=== PATIENT | female | born 1970 | race Caucasian/White ===

== ENCOUNTER 2017-04-09 19:36 | Emergency (ER) | payer OTHER ==
[~2017-04-09] VITALS: Ht 154.9 cm; Wt 70.0 kg
[~2017-04-09 19:36] MED LIST: ACET500C5 PO; HYDR-1666 PO; IBUP-1542 PO; IBUP-727 PO; IBUP800T25 PO
[2017-04-09 20:14] VITALS: Ht 154.9 cm; Wt 70.0 kg
[2017-04-09] MEDS ORDERED: ONDANSETRON (ODT) 4 MG TAB ODT STA (22:12)
[2017-04-09] MEDS ORDERED: ACETAMINOPHEN 325 MG TAB PO ONE (22:30)
--- NOTE | 2017-04-09 22:48 | RADRPT ---
PROCEDURE: CT Head without. CLINICAL INDICATION: Headache. TECHNIQUE: The study was performed utilizing a multi-slice, multidetector CT scanner. Direct spira l 1 mm axial sections were obtained through the head without the use of intravenous contrast materia l. 1 or more of the following dose reduction techniques were utilized: Automated exposure control, adjustment of the mA and/or kV according to patient's size, iterative reconstruction technique. Co cristina and sagittal reformations were obtained. The images were reviewed on a PACS workstation. RADIATION DOSE: CTDIvol: 44.2 mGyDLP: 630.2 mGy-cm COMPARISON: 05/19/2015 FINDINGS: There is no intracranial hemorrhage, extra-axial fluid collection, mass lesion, midline shift or hyd rocephalus. The ventricles, sulci and cisterns are within normal limits. The white matter is unrem arkable. The khan-white matter differentiation is preserved. The basal cisterns are patent. The m idline structures are intact. The orbits, calvarium and extracranial soft tissues are normal in amber earance. The visualized paranasal sinuses, mastoid air cells and middle ear cavities are normally ae rated. IMPRESSION: 1. No acute intracranial abnormality. No intracranial hemorrhage, extra-axial fluid collection, ma ss lesion or hydrocephalous. RPTAT: HGAS .Xavi Sparrow MD, MD Date Time Electronically viewed and signed by .Xavi Sparrow MD, MD on 04/09/2017 22:47 .S/
--- NOTE | 2017-04-09 23:27 | RADRPT ---
PROCEDURE: Left knee. CLINICAL INDICATION: Pain. TECHNIQUE: Three views including AP, lateral and oblique views of the left knee were obtained. T he images reviewed on a PACS workstation. COMPARISON: None. FINDINGS: There is no fracture, dislocation or bone destruction. There is no significant joint space narrowin g or effusion. Bone mineralization is within normal limits. There is no radiopaque foreign body or abnormal calcification. IMPRESSION: No evidence of fracture. .Juma Ireland MD, Date Time Electronically viewed and signed by .Juma Ireland MD, on 04/09/2017 23:26 .T/
--- NOTE | 2017-04-09 23:27 | ERD ---
ER Documentation Chief Complaint Date/Time DATE: 04/09/17 TIME: 23:24 Chief Complaint LEFT KNEE PAIN X3 DAYS. STATES SHE FELL HPI Patient is a 46-year-old female with no past medical history who presents to the ED with multiple complaints. States that she has left knee pain for the last week. She states that the pain is localized at her knee and does not radiate. She denies trauma. Also states that she has right shoulder pain 1 week. Denies trauma. States that it hurts when she lifts up her arm. Also states that she has right sided headachE 4 days. States that she has never had this type of pain before. States that she has gone headaches however her usual headaches are localized in the front and this headache is localized on the right side. States that she has mild nausea with no vomiting. Denies dizziness, neck pain or neck stiffness. Denies chest pain or cough or shortness of breath. Denies leg pain or swelling. Has taken ibuprofen which is helped minimally with her symptoms. No other complaints. ROS All systems reviewed and are negative except as per history of present illness. Medications Home Meds Active Scripts Naproxen* (Naprosyn*) 500 Mg Tablet, 500 MG PO BID Y for PAIN AND/OR INFLAMMATION, #30 TAB Prov:SHIRLENE CARSONC 04/09/17 Ibuprofen* (Motrin*) 800 Mg Tab, 800 MG PO Q6H Y for PAIN AND OR ELEVATED TEMP, #30 TAB Prov:BECKY MIGUEL MD 11/04/16 Ibuprofen* (Ibuprofen*) 600 Mg Tablet, 600 MG PO Q6H Y for PA, #30 TAB Prov:PHYLLIS MUELLER NP 08/19/15 Acetaminophen* (Tylophen*) 500 Mg Capsule, 1 CAP PO Q6H Y for PAIN AND OR ELEVATED TEMP, #30 CAP Prov:PHYLLIS MUELLER NP 05/19/15 Reported Medications Ibuprofen (Motrin) 600 Mg Tablet, 600 MG PO Q8 PRN 12/27/12 Hydrocodone Bit/Acetaminophen (Vicodin 5/500 Tablet) 1 Tab Tablet, 1 TAB PO Q4 PRN 12/27/12 Allergies Allergies: Coded Allergies: No Known Allergy (Unverified , 12/27/12) PMhx/Soc History of Surgery: Yes (cholecystectomy, C SECTION ) Anesthesia Reaction: No Hx Neurological Disorder: No Hx Respiratory Disorders: No Hx Cardiac Disorders: No Hx Psychiatric Problems: No Hx Miscellaneous Medical Probl: No Hx Alcohol Use: No Hx Substance Use: No Hx Tobacco Use: No Smoking Status: Never smoker FmHx Family History: No coronary disease, No diabetes, No other Physical Exam Vitals Vital Signs Date Time Temp Pulse Resp B/P Pulse Ox O2 Delivery O2 Flow Rate FiO2 04/09/17 20:14 98.2 71 18 155/93 95 Physical Exam GENERAL: Well-developed, well-nourished female. Appears in no acute distress. HEAD: Normocephalic, atraumatic. EYES: Pupils are equally reactive bilaterally. EOMs grossly intact. No conjunctival erythema. ENT: Moist mucous membranes. No uvula deviation. No kissing tonsils. No exudates. NECK: Supple. No lymphadenopathy or thyromegaly. No meningismus. negative kernig. negative brudinski. LUNG: Clear to auscultation bilaterally. No rhonchi, wheezing, rales or coarse breath sounds. HEART: Regular rate and rhythm. No murmurs, rubs or gallops. Extremities: Equal pulses bilaterally. No peripheral clubbing, cyanosis or edema. No unilateral leg swelling. No ecchymosis. Range of motion intact. No swelling. Negative Homans sign. No palpable cord. Tenderness to the right scapula. Pain with full extension. No step-offs or deformities. No open wounds or lacerations. NEUROLOGIC: Alert and oriented. Moving all four extremities. 5/5 strength in all extremities. Normal speech. Steady gait. No ataxia. Negative Romberg test. Cranial nerves II through XII intact SKIN: Normal color. Warm and dry. No rashes or lesions. Capillary refill < 2 seconds Results 24 hrs Current Medications Medications (Trade) Dose Ordered Sig/Reanna Route PRN Reason Start Time Stop Time Status Last Admin Dose Admin Acetaminophen (Tylenol Tab) 650 mg ONCE ONCE PO 04/09/17 22:30 04/09/17 22:31 DC 04/09/17 22:18 Ondansetron HCl (Zofran Odt) 4 mg ONCE STAT ODT 04/09/17 22:12 04/09/17 22:13 DC 04/09/17 22:18 Procedures/MDM ER COURSE: I kept the patient and/or family informed of laboratory and diagnostic imaging results throughout the emergency room course. IMAGING STUDIES [place] [address] Radiology Main Line: [phone] DIAGNOSTIC IMAGING REPORT Patient: OMAR LOCO : 1970 Age: 46 Sex: F MR #: [id number] DOS: 04/09/17 2212 Ordering MD: SHIRLENE CARSON PA-C Location: [facility] Room/Bed: PROCEDURE: CT Head without. CLINICAL INDICATION: Headache. TECHNIQUE: The study was performed utilizing a multi-slice, multidetector CT scanner. Direct spiral 1 mm axial sections were obtained through the head without the use of intravenous contrast material. 1 or more of the following dose reduction techniques were utilized: Automated exposure control, adjustment of the mA and/or kV according to patient's size, iterative reconstruction technique. Coronal and sagittal reformations were obtained. The images were reviewed on a PACS workstation. RADIATION DOSE: CTDIvol: 44.2 mGy DLP: 630.2 mGy-cm COMPARISON: 05/19/2015 FINDINGS: There is no intracranial hemorrhage, extra-axial fluid collection, mass lesion, midline shift or hydrocephalus. The ventricles, sulci and cisterns are within normal limits. The white matter is unremarkable. The khan-white matter differentiation is preserved. The basal cisterns are patent. The midline structures are intact. The orbits, calvarium and extracranial soft tissues are normal in appearance. The visualized paranasal sinuses, mastoid air cells and middle ear cavities are normally aerated. IMPRESSION: 1. No acute intracranial abnormality. No intracranial hemorrhage, extra-axial fluid collection, mass lesion or hydrocephalous. RPTAT: HGAS .Xavi Sparrow MD, MD Date Time Electronically viewed and signed by .Xavi Sparrow MD, MD on 04/09/2017 22: 47 .S/ CC: SHIRLENE CARSON PA-C MEDICATIONS Tylenol, Zofran. Tolerated well with no adverse reaction. MEDICAL DECISION MAKING: This is a 46-year-old who presents with left knee pain, headache and right shoulder pain 1 week. Vital signs were reviewed. Patient is afebrile. Patient is not hypoxic. Patient is not toxic or ill-appearing. Patient has headache of unknown etiology. CT scan is read by radiologist unremarkable. Patient has left knee pain of unknown etiology. X-rays of by radiologist unremarkable for fracture dislocation. Patient likely has early arthritis. X-rays of by radiologist for shoulder is unremarkable. Patient likely has muscle strain versus sprain. However unable to rule out tendon or ligament injury. Low suspicion for dislocation, fracture, septic joint, compartment syndrome, osteomyelitis, cellulitis, avascular necrosis, neurological injury, vascular injury, tendon laceration, DVT. Low suspicion for intracranial hemorrhage, meningitis, intracranial mass, concussion, temporal arteritis, stroke, elevated intracranial pressure, seizure. Patient was given an Hieu wrap in the ED. Neurovascularly intact post Hieu placement DISCHARGE: At this time, patient is stable for discharge and outpatient management with no new complaints during the ER course. Patient was sent home with Naprosyn, Hieu wrap and to follow-up with primary care provider. All copy of imaging studies were given to patient peer. Patient will be discharged home with instructions to recheck for new or worsening symptoms such as fever, nausea, weakness, LOC and to follow up with primary care in the next 1-2 days. Patient was advised to return to the ER for any new or worsening symptoms. Plan was discussed and patient and/or family understands and agrees. Home instructions were given. Departure Diagnosis: Primary Impression: Headache Headache type: unspecified Headache chronicity pattern: unspecified pattern Intractability: not intractable Qualified Code: R51 - Nonintractable headache, unspecified chronicity pattern, unspecified headache type Additional Impression: Knee pain Laterality: left Chronicity: acute Qualified Code: M25.562 - Acute pain of left knee Condition: Stable SHIRLENE CARSON PA-C Apr 09, 2017 23:27
--- NOTE | 2017-04-09 23:28 | RADRPT ---
PROCEDURE: Right shoulder. CLINICAL INDICATION: Pain. TECHNIQUE: Three views of the right shoulder. COMPARISON: None. FINDINGS: There is no fracture, dislocation or bone destruction. The joint spaces are within normal limits. Bone mineralization is within normal limits. There is no radiopaque foreign body or abnormal calcif ication. IMPRESSION: Unremarkable right shoulder. .Juma Ireland MD, MD Date Time Electronically viewed and signed by .Juma Ireland MD, on 04/09/2017 23:27 .T/
[2017-04-09] MEDS ORDERED: NAPR-260 PO (23:33)
[2017-04-10] VITALS: BP 135/65; PULSE 64; RESP 20; TEMP 98
== END 2017-04-10 00:03 | disposition home or self-care (01) ==
LOC: FTE 19:36
DX: R51 Headache (principal)
CPT/HCPCS: 70450; 73030; 73562; Z7502; Z7610

== ENCOUNTER 2017-06-14 01:19 | Emergency (ER) | payer OTHER ==
[~2017-06-14] VITALS: Ht 152.4 cm; Wt 97.0 kg
[~2017-06-14 01:19] MED LIST changes: +NAPR-260 PO
[2017-06-14 01:26] VITALS: Ht 152.4 cm; Wt 97.0 kg
[2017-06-14] MEDS ORDERED: SOD CHLORIDE 0.9% 1,000 ML IV STA (01:35)
[2017-06-14] MEDS ORDERED: ONDANSETRON 4 MG INJ IV STA (01:35)
[2017-06-14] MEDS ORDERED: morphine 2 MG INJ IV STA (01:35)
[2017-06-14] MEDS ORDERED: ASPIRIN 325 MG TAB PO ONE (02:23)
--- NOTE | 2017-06-14 02:40 | RADRPT ---
PROCEDURE: XR Chest. CLINICAL INDICATION: Chest pain. TECHNIQUE: Single frontal chest x-ray. COMPARISON: None. FINDINGS: The cardiomediastinal silhouette is unremarkable. There is no congestive heart failure.. No focal i nfiltrate is seen. There is no pleural effusion. There is no pneumothorax. The osseous structures are unremarkable. IMPRESSION: 1. No active disease. RPTAT: HMVK .Michael Shen MD, MD Date Time Electronically viewed and signed by .Michael Shen MD, MD on 06/14/2017 02:40 .K/
--- NOTE | 2017-06-14 03:12 | RADRPT ---
PROCEDURE: CT Brain without contrast. CLINICAL INDICATION: Headache and hypertension TECHNIQUE: Axial images from the skull base through the vertex without IV contrast. Multiplanar r eformatted images were made. Images were reviewed on a PACS workstation. The CTDIvol is 44.4 see m Gy and the DLP is 630.2 mGycm. One or more of the following dose reduction techniques were used: au tomated exposure control, adjustment of the mA and/or kV according to patient size, or use of iterat omari reconstruction technique. COMPARISON: 04/09/2017 FINDINGS: The ventricles and cisterns are normal for age. There is no evidence for territorial infarction or intracranial hemorrhage. No mass or midline shift is seen. No extra-axial fluid collection is seen . The visualized paranasal sinuses and mastoids are clear. IMPRESSION: No definite acute intracranial abnormality. RPTAT: HLBE Physician Naveed Date Time Electronically viewed and signed by Mirtha Avila Physician on 06/14/2017 03:12 SANJIV/
[2017-06-14 03:13] LABS: BASOPHIL # 0.1 10^3/ul (0.0-0.1); BASOPHILS % 0.7 % (0.0-2.0); EOSINOPHILS # 0.3 10^3/ul (0.0-0.5); EOSINOPHILS % 3.9 % (0.0-7.0); HEMATOCRIT 39.1 % (37.0-47.0); LYMPHOCYTES # 2.9 10^3/ul (0.8-2.9); LYMPHOCYTES % 38.4 % (15.0-51.0); MEAN CORPUSCULAR HEMOGLOBIN 30.2 pg (29.0-33.0); MEAN CORPUSCULAR HGB CONC 33.2 g/dl (32.0-37.0); MEAN CORPUSCULAR VOLUME 90.9 fl (82.0-101.0); MEAN PLATELET VOLUME 10.9 fl (7.4-10.4); MONOCYTE # 0.7 10^3/ul (0.3-0.9); MONOCYTES % 8.9 % (0.0-11.0); NEUTROPHIL # 3.6 10^3/ul (1.6-7.5); NEUTROPHILS % 47.7 % (39.0-77.0); PLATELET COUNT 288 10^3/UL (140-415); RED CELL DISTRIBUTION WIDTH 11.9 % (11.5-14.5); WHITE BLOOD COUNT 7.6 10^3/ul (4.8-10.8)
[2017-06-14 03:31] LABS: INR 0.95; PROTIME 12.7 Sec (12.2-14.2)
[2017-06-14 03:43] LABS: ADD UMIC YES; UR ASCORBIC ACID NEGATIVE (NEGATIVE); UR BACTERIA FEW /HPF (NONE SEEN); UR BILIRUBIN (Dip) NEGATIVE (NEGATIVE); UR BLOOD (Dip) NEGATIVE (NEGATIVE); UR CLARITY CLEAR (CLEAR); UR COLOR YELLOW (YELLOW); UR GLUCOSE (Dip) NEGATIVE (NEGATIVE); UR KETONES (Dip) NEGATIVE (NEGATIVE); UR LEUKOCYTE ESTERASE (Dip) TRACE Leu/ul (NEGATIVE); UR MUCUS FEW /HPF (NONE SEEN); UR NITRITE (Dip) NEGATIVE (NEGATIVE); UR RBC 2 /HPF (0-5); UR SPECIFIC GRAVITY (Dip) 1.021 (1.003-1.030); UR SQUAMOUS EPITHELIAL CELL FEW /HPF (FEW); UR TOTAL PROTEIN (Dip) NEGATIVE (NEGATIVE); UR UROBILINOGEN (Dip) NEGATIVE (NEGATIVE)
[2017-06-14 03:50] LABS: ALBUMIN 4.5 g/dl (3.3-4.9); ALBUMIN/GLOBULIN RATIO 1.55; BILIRUBIN,INDIRECT 0.2 mg/dl (0-1.1); BILIRUBIN,TOTAL 0.2 mg/dl (0.2-1.3); CALCIUM 9.4 mg/dl (8.4-10.2); CREATININE 0.73 mg/dl (0.44-1.00); POTASSIUM 4.3 mmol/L (3.5-5.1); TOTAL PROTEIN 7.4 g/dl (6.1-8.1)
[2017-06-14 04:43] LABS: B-TYPE NATRIURETIC PEPTIDE 22 PG/ML (0-125)
[2017-06-14 04:45] LABS: TROPONIN-I < 0.012 ng/ml (0.00-0.12)
--- NOTE | 2017-06-14 05:00 | ERD ---
ER Documentation Chief Complaint Date/Time DATE: 06/14/17 TIME: 04:51 Chief Complaint left side of face, arm, and leg pain x3 days. Vomiting today HPI Patient presents with 3 days of hand tingling of the left hand as well as left side of the face pain and chest pain. She vomited once today. She still has nausea. She has never smoked in her life, has no hypertension, has a regular primary care doctor who checks her annually, she has no high cholesterol any other cardiac risk factor. ROS All systems reviewed and are negative except as per history of present illness. Medications Home Meds Active Scripts Naproxen* (Naprosyn*) 500 Mg Tablet, 500 MG PO BID Y for PAIN AND/OR INFLAMMATION, #30 TAB Prov:SHIRLENE CARSONC 04/09/17 Ibuprofen* (Motrin*) 800 Mg Tab, 800 MG PO Q6H Y for PAIN AND OR ELEVATED TEMP, #30 TAB Prov:BECKY MIGUEL MD 11/04/16 Ibuprofen* (Ibuprofen*) 600 Mg Tablet, 600 MG PO Q6H Y for PA, #30 TAB Prov:PHYLLIS MUELLER NP 08/19/15 Acetaminophen* (Tylophen*) 500 Mg Capsule, 1 CAP PO Q6H Y for PAIN AND OR ELEVATED TEMP, #30 CAP Prov:PHYLLIS MUELLER NP 05/19/15 Reported Medications Ibuprofen (Motrin) 600 Mg Tablet, 600 MG PO Q8 PRN 12/27/12 Hydrocodone Bit/Acetaminophen (Vicodin 5/500 Tablet) 1 Tab Tablet, 1 TAB PO Q4 PRN 12/27/12 Allergies Allergies: Coded Allergies: No Known Allergy (Unverified , 12/27/12) PMhx/Soc History of Surgery: Yes (cholecystectomy, C SECTION ) Anesthesia Reaction: No Hx Neurological Disorder: No Hx Respiratory Disorders: No Hx Cardiac Disorders: No Hx Psychiatric Problems: No Hx Miscellaneous Medical Probl: No Hx Alcohol Use: No Hx Substance Use: No Hx Tobacco Use: No Smoking Status: Unknown if ever smoked Physical Exam Vitals Vital Signs Date Time Temp Pulse Resp B/P Pulse Ox O2 Delivery O2 Flow Rate FiO2 06/14/17 03:17 67 12 112/72 100 Room Air 06/14/17 01:26 98.3 79 20 139/75 97 Physical Exam Const: [] No distress Head: Atraumatic Eyes: Normal Conjunctiva ENT: Normal External Ears, Nose and Mouth. Neck: Full range of motion..~ No meningismus. Resp: Clear to auscultation bilaterally Cardio: Regular rate and rhythm, no murmurs Abd: Soft, non tender, non distended. Normal bowel sounds Skin: No petechiae or rashes Back: No midline or flank tenderness Ext: No cyanosis, or edema Neur: Awake and alert and oriented 3, no focal deficits Psych: Normal Mood and Affect Result Diagram: 06/14/1721906/14/17219 Results 24 hrs Laboratory Tests Test 06/14/17 02:20 06/14/17 02:35 White Blood Count 7.610^3/ul Red Blood Count 4.3010^6/ul Hemoglobin 13.0g/dl Hematocrit 39.1% Mean Corpuscular Volume 90.9fl Mean Corpuscular Hemoglobin 30.2pg Mean Corpuscular Hemoglobin Concent 33.2g/dl Red Cell Distribution Width 11.9% Platelet Count 35481^3/UL Mean Platelet Volume 10.9fl Neutrophils % 47.7% Lymphocytes % 38.4% Monocytes % 8.9% Eosinophils % 3.9% Basophils % 0.7% Nucleated Red Blood Cells % 0.0/100WBC Neutrophils # 3.610^3/ul Lymphocytes # 2.910^3/ul Monocytes # 0.710^3/ul Eosinophils # 0.310^3/ul Basophils # 0.110^3/ul Nucleated Red Blood Cells # 0.010^3/ul Prothrombin Time 12.7Sec Prothrombin Time Ratio 1.0 INR International Normalized Ratio 0.95 Activated Partial Thromboplast Time 32.0Sec Sodium Level 148mmol/L Potassium Level 4.3mmol/L Chloride Level 107mmol/L Carbon Dioxide Level 26mmol/L Anion Gap 19 Blood Urea Nitrogen 23mg/dl Creatinine 0.73mg/dl Glucose Level 97mg/dl Calcium Level 9.4mg/dl Total Bilirubin 0.2mg/dl Direct Bilirubin 0.00mg/dl Indirect Bilirubin 0.2mg/dl Aspartate Amino Transf (AST/SGOT) 27IU/L Alanine Aminotransferase (ALT/SGPT) 33IU/L Alkaline Phosphatase 117IU/L Troponin I < 0.012ng/ml B-Type Natriuretic Peptide 22PG/ML Total Protein 7.4g/dl Albumin 4.5g/dl Globulin 2.90g/dl Albumin/Globulin Ratio 1.55 Lipase 120U/L Urine Color YELLOW Urine Clarity CLEAR Urine pH 6.0 Urine Specific [place] 1.021 Urine Ketones NEGATIVEmg/dL Urine Nitrite NEGATIVEmg/dL Urine Bilirubin NEGATIVEmg/dL Urine Urobilinogen NEGATIVEmg/dL Urine Leukocyte Esterase TRACELeu/ul Urine Microscopic RBC 2/HPF Urine Microscopic WBC 3/HPF Urine Squamous Epithelial Cells FEW/HPF Urine Calcium Oxalate Crystals FEW/HPF Urine Bacteria FEW/HPF Urine Mucus FEW/HPF Urine Hemoglobin NEGATIVEmg/dL Urine Glucose NEGATIVEmg/dL Urine Total Protein NEGATIVEmg/dl Current Medications Medications (Trade) Dose Ordered Sig/Reanna Route PRN Reason Start Time Stop Time Status Last Admin Dose Admin Sodium Chloride (NS) 1,000 ml @ 1,000 mls/hr Q1H STAT IV 06/14/17 01:35 06/14/17 02:34 DC 06/14/17 02:23 Morphine Sulfate (morphine) 2 mg ONCE STAT IV 06/14/17 01:35 06/14/17 01:37 DC 06/14/17 02:19 Ondansetron HCl (Zofran Inj) 4 mg ONCE STAT IV 06/14/17 01:35 06/14/17 01:37 DC 06/14/17 02:19 Aspirin (Aspirin) 325 mg ONCE ONCE PO 06/14/17 02:23 06/14/17 02:24 DC 06/14/17 02:42 Procedures/MDM Atypical chest pain and patient with no risk factors for chest pain. Possible UTI with trace leukocyte esterase per pain completely resolved in the emergency room. Negative troponin and normal EKG. She was given morphine as well as Zofran and an aspirin. Her chest pain was resolved completely emergency room she was monitored for several hours. This is low risk patient with negative preliminary workup. She does not want to stay in the hospital. Going to discharge her with Zantac Zofran instructions for outpatient echocardiogram through primary care doctor. EKG interpretation: Sinus bradycardia rate of 57, normal axis, normal intervals , no ST or T-wave changes concerning for acute ischemia. Normal EKG except for bradycardia proposal manager interpretation: Normal sinus rhythm mild sinus bradycardia without other arrhythmia Chest and interpretation: I see no acute process. I see no widened mediastinum , pneumothorax, no infiltrates, no fractures Departure Diagnosis: Primary Impression: Chest pain Additional Impressions: Vomiting UTI (urinary tract infection) Condition: Stable CAROL VALLE DO Jun 14, 2017 05:00
[2017-06-14] MEDS ORDERED: ONDA4TAB11 PO (05:01)
[2017-06-14] MEDS ORDERED: RANI150T9 PO (05:01)
[2017-06-14] MEDS ORDERED: CEPH-443 PO (05:01)
[2017-06-14 05:13] VITALS: BP 107/74; PULSE 75; RESP 14
== END 2017-06-14 05:14 | disposition home or self-care (01) ==
LOC: E/R 01:19
DX: R07.9 Chest pain, unspecified (principal); R40.2252 Coma scale, best verbal response, oriented, at arrival to emergency department; R11.10 Vomiting, unspecified; N39.0 Urinary tract infection, site not specified; R40.2142 Coma scale, eyes open, spontaneous, at arrival to emergency department; R40.2362 Coma scale, best motor response, obeys commands, at arrival to emergency department
CPT/HCPCS: 36415; 70450; 71010; 80053; 81001; 83690; 83880; 84484; 85025; 85610; 85730; 93005; 96374; 96375; J2270; J2405; J7030; Z7502; Z7610

== ENCOUNTER 2017-06-30 23:52 | Inpatient (IN) | payer OTHER ==
[~2017-06-30] VITALS: Ht 152.4 cm; Wt 71.5 kg
[~2017-06-30 23:52] MED LIST changes: -ACET500C5 PO; +CEPH-443 PO; -HYDR-1666 PO; -IBUP800T25 PO; -NAPR-260 PO; +ONDA4TAB11 PO; +RANI150T9 PO
[2017-07-01] VITALS (10 sets, daily range): BP systolic 113–133; BP diastolic 71–84; PULSE 65–85; RESP 16–19; TEMP 98.7; Ht 152.4 cm; Wt 71.5 kg
[2017-07-01 00:31] LABS: BASOPHILS % 0.5 % (0.0-2.0); EOSINOPHILS # 0.3 10^3/ul (0.0-0.5); EOSINOPHILS % 3.2 % (0.0-7.0); HEMATOCRIT 41.3 % (37.0-47.0); HEMOGLOBIN 13.9 g/dl (12.0-16.0); LYMPHOCYTES # 2.5 10^3/ul (0.8-2.9); LYMPHOCYTES % 32.6 % (15.0-51.0); MEAN CORPUSCULAR HEMOGLOBIN 31.1 pg (29.0-33.0); MEAN CORPUSCULAR HGB CONC 33.7 g/dl (32.0-37.0); MEAN CORPUSCULAR VOLUME 92.4 fl (82.0-101.0); MEAN PLATELET VOLUME 9.6 fl (7.4-10.4); MONOCYTE # 0.7 10^3/ul (0.3-0.9); MONOCYTES % 8.7 % (0.0-11.0); NEUTROPHILS % 54.4 % (39.0-77.0); PLATELET COUNT 344 10^3/UL (140-415); RED BLOOD COUNT 4.47 10^6/ul (4.20-5.40); RED CELL DISTRIBUTION WIDTH 11.6 % (11.5-14.5); WHITE BLOOD COUNT 7.7 10^3/ul (4.8-10.8)
--- NOTE | 2017-07-01 00:38 | RADRPT ---
AMENDMENT: 07/07/2017 11:07:46 PM Kala Beard M.D One or more of the following dose reduction techniques were used: - Automated exposure control. - Adjustment of the mA and/or kV according to patient size. - Use of iterative reconstruction technique. PROCEDURE: CT HEAD WITHOUT CONTRAST: CLINICAL INDICATION: 46-year of age female, stroke code. COMPARISON: None available. TECHNIQUE: CT of the head was performed without IV contrast. Sagittal and coronal reformations were constructed. Dose information: The estimated radiation dose (CTDI vol mGy) for each series in this exam is 45 . The estimated cumulative dose (DLP mGy-cm) is 720 . FINDINGS: Parenchyma: Negative for evidence of acute intracranial hemorrhage, mass effect or large territory i nfarct. Coleman-white matter differentiation is maintained. Ventricles and extra-axial spaces: Appropriate for age. No abnormal extra-axial fluid collections ar e identified. Visualized paranasal sinuses: Mild amount of mucous in right sphenoid sinus. Mastoid air cells: Clear. Bones: No focal abnormality. Additional comment: None. IMPRESSION: Negative for evidence of acute intracranial hemorrhage, mass effect or large territory infarct. Findings were discussed with Dr. Limon by Dr. Kala Beard on July 01, 2017 at 12:35 AM. RPTAT: HCTS Physician Karmen Date Time Electronically viewed and signed by Sen Beard Physician on 07/07/2017 23:08 CS/
[2017-07-01 00:49] LABS: INR 0.91; PROTIME 12.2 Sec (12.2-14.2)
[2017-07-01 00:50] LABS: PARTIAL THROMBOPLASTIN TIME 30.7 Sec (25.0-35.0)
[2017-07-01 00:56] LABS: ANION GAP 17 (8-16); BLOOD UREA NITROGEN 19 mg/dl (7-20); CALCIUM 9.4 mg/dl (8.4-10.2); CARBON DIOXIDE 28 mmol/L (21-31); CHLORIDE 102 mmol/L (97-110); CREATININE 0.68 mg/dl (0.44-1.00); GLUCOSE 167 mg/dl (70-220); POTASSIUM 3.7 mmol/L (3.5-5.1); SODIUM 143 mmol/L (135-144)
[2017-07-01] MEDS ORDERED: LORAZEPAM 2 MG INJ IV ONE (01:00)
[2017-07-01] MEDS ORDERED: ASPIRIN 325 MG TAB PO ONE (01:00)
--- NOTE | 2017-07-01 01:00 | STROKE ---
Date/Time of Note Date/Time of Note DATE: 07/01/17 TIME: 02:56 Patient Information General Patient location: emergency Arrival Date Onset Time: 23:00 Onset Type 46 YO W who saw a rat at 23:00 and got extremely scared, got acute chest pain, and suddenly had the inability to stop shaking her right arm. Brought to ED where team thought she had R facial droop an R arm shaking concerning for seizure. Age 46 Gender female Weight 70.5 kg POC Glucose Glucose Result Bedside Glucose - 72 Hours Test 07/01/17 00:21 Bedside Glucose 145mg/dL (70-220) Vital Signs Vital Signs Vital Signs Date Time Temp Pulse Resp B/P Pulse Ox O2 Delivery O2 Flow Rate FiO2 07/01/17 00:00 98.3 98 24 143/83 98 Patient History Current Medications Allergies: Coded Allergies: No Known Allergy (Unverified , 12/27/12) Labs Hematology Labs Hematology Test 07/01/17 00:20 White Blood Count 7.710^3/ul (4.8-10.8) Red Blood Count 4.4710^6/ul (4.20-5.40) Hemoglobin 13.9g/dl (12.0-16.0) Hematocrit 41.3% (37.0-47.0) Mean Corpuscular Volume 92.4fl (82.0-101.0) Mean Corpuscular Hemoglobin 31.1pg (29.0-33.0) Mean Corpuscular Hemoglobin Concent 33.7g/dl (32.0-37.0) Red Cell Distribution Width 11.6% (11.5-14.5) Platelet Count 98991^3/UL (140-415) Mean Platelet Volume 9.6fl (7.4-10.4) Neutrophils % 54.4% (39.0-77.0) Lymphocytes % 32.6% (15.0-51.0) Monocytes % 8.7% (0.0-11.0) Eosinophils % 3.2% (0.0-7.0) Basophils % 0.5% (0.0-2.0) Nucleated Red Blood Cells % 0.0/100WBC (0.0-0.0) Neutrophils # (Manual) 4.210^3/ul (1.7-7.5) Lymphocytes # 2.510^3/ul (0.8-2.9) Monocytes # 0.710^3/ul (0.3-0.9) Eosinophils # 0.310^3/ul (0.0-0.5) Basophils # 0.010^3/ul (0.0-0.1) Nucleated Red Blood Cells # 0.010^3/ul (0.0-0.0) Chemistry Labs Chemistry Test 07/01/17 00:21 Bedside Glucose 145mg/dL (70-220) Coagulation Labs: Coagulation Test 07/01/17 00:20 Prothrombin Time 12.2Sec (12.2-14.2) Prothrombin Time Ratio 1.0 INR International Normalized Ratio 0.91 Activated Partial Thromboplast Time 30.7Sec (25.0-35.0) History & Physical History of Present Illness 46 YO W who saw a rat at 23:00 and got extremely scared, got acute chest pain, and suddenly had the inability to stop shaking her right arm. Brought to ED where team thought she had R facial droop an R arm shaking concerning for seizure. NIH Stroke Scale NIH Stroke Scale Total Score: 3 Date/Time Recorded DATE: 07/01/17 TIME: 02:56 Submitted By Gavin Mckeon t-PA Imaging Review Date/Time Imaging Reviewed DATE: 07/01/17 TIME: 02:50 Reason Not Reviewed No ICH per Radiology read t-PA Administration Recommendation: No Weight 70.5 kg Recommedation submitted by Gavin Mckeon Reason t-PA not Recommended Not stroke Recommendations Impression Diagnosis 46 YO W who saw a rat, got scared, had acute chest pain, bilateral UE shaking. She has a highly functional exam with lack of right facial movement due to "pain ", although she has no objective facial asymmetry. She cannot stop shaking her RUE yet follows commands with it, making simple motor seizure not likely. She has a sensory deficit that rapidly changes in distribution. I do not suspect stroke. Not an IV tPA candidate as do not suspect stroke. Diagnosis is acute stress reaction. Recommendation - No further emergent neurodiagnostics - Observation and treatment per ED team GAVIN MCKEON MD Jul 01, 2017 01:00
--- NOTE | 2017-07-01 01:14 | RADRPT ---
PROCEDURE: CHEST - 1 VIEW CLINICAL INDICATION: 46-year-old female with change in mental status. TECHNIQUE: A single frontal AP portable view of the chest was performed. The images were reviewed on a PACS workstation. COMPARISON: None. FINDINGS: The cardiomediastinal silhouette has a normal appearance. There is a shallow inspiration. There is no evidence for an infiltrate. There is no evidence for congestive heart failure. There is no evid ence for pneumothorax. The osseous structures are intact. IMPRESSION: No evidence for active cardiopulmonary disease. .Pb Lacy MD, MD Date Time Electronically viewed and signed by .Pb Lacy MD, on 07/01/2017 01:14 .Jade/
[2017-07-01 01:21] LABS: TROPONIN-I < 0.012 ng/ml (0.00-0.12)
[2017-07-01] MEDS ORDERED: ONDANSETRON 4 MG INJ IV PRN ×2 (02:30→08:30)
[2017-07-01] MEDS ORDERED: ACETAMINOPHEN 325 MG TAB PO PRN (02:30)
--- NOTE | 2017-07-01 03:16 | ERA ---
ER Documentation Chief Complaint Date/Time DATE: 07/01/17 TIME: 03:11 Chief Complaint Chest pain since this 0. Pt is shaking with facial droop and weakness HPI Patient is a 46-year-old female who presents with right arm shaking. The patient came in with confusion as well. She had a right-sided facial droop. The symptoms started at 11 PM. The patient has no treatment as of yet. The patient was brought in by her mother. Upon review of old medical records the patient has multiple visits to the ER for various complaints. ROS All systems reviewed and are negative except as per history of present illness. Medications Home Meds Active Scripts Ranitidine Hcl* (Zantac*) 150 Mg Tablet, 150 MG PO BID Y for EPIGASTRIC PAIN, # 30 TAB Prov:LEONARDCAROL DO 06/14/17 Cephalexin* (Keflex*) 500 Mg Capsule, 500 MG PO TID for 3 Days, CAP Prov:LEONARDCAROL DO 06/14/17 Ondansetron (Zofran Odt) 4 Mg Tab.rapdis, 4 MG PO Q6, #10 Prov:LEONARDCAROL DO 06/14/17 Ibuprofen* (Ibuprofen*) 600 Mg Tablet, 600 MG PO Q6H Y for PA, #30 TAB Prov:PHYLLIS MUELLER NP 08/19/15 Reported Medications Ibuprofen (Motrin) 600 Mg Tablet, 600 MG PO Q8 PRN 12/27/12 Allergies Allergies: Coded Allergies: No Known Allergy (Unverified , 12/27/12) PMhx/Soc History of Surgery: Yes (cholecystectomy, C SECTION ) Anesthesia Reaction: No Hx Neurological Disorder: No Hx Respiratory Disorders: No Hx Cardiac Disorders: No Hx Psychiatric Problems: No Hx Miscellaneous Medical Probl: No Hx Alcohol Use: No Hx Substance Use: No Hx Tobacco Use: No Smoking Status: Never smoker FmHx Family History: No diabetes Physical Exam Vitals Vital Signs Date Time Temp Pulse Resp B/P Pulse Ox O2 Delivery O2 Flow Rate FiO2 07/01/17 00:00 98.3 98 24 143/83 98 Physical Exam Const: Moderate distress Head: Atraumatic Eyes: Normal Conjunctiva ENT: Mild right-sided facial droop Neck: Full range of motion..~ No meningismus. Resp: Clear to auscultation bilaterally Cardio: Regular rate and rhythm, no murmurs Abd: Soft, non tender, non distended. Normal bowel sounds Skin: No petechiae or rashes Back: No midline or flank tenderness Ext: Rhythmic shaking of the right upper extremity however able to grasp my finger on that side Neur: Awake. Patient has rhythmic shaking of the right upper extremity however she is able to follow commands and squeeze by finger on that side, mild right-sided facial droop, no slurred speech Psych: Anxious Result Diagram: 07/01/17 0020 07/01/17 0020 Results 24 hrs Laboratory Tests Test 07/01/17 00:20 07/01/17 00:21 White Blood Count 7.710^3/ul Red Blood Count 4.4710^6/ul Hemoglobin 13.9g/dl Hematocrit 41.3% Mean Corpuscular Volume 92.4fl Mean Corpuscular Hemoglobin 31.1pg Mean Corpuscular Hemoglobin Concent 33.7g/dl Red Cell Distribution Width 11.6% Platelet Count 28201^3/UL Mean Platelet Volume 9.6fl Neutrophils % 54.4% Lymphocytes % 32.6% Monocytes % 8.7% Eosinophils % 3.2% Basophils % 0.5% Nucleated Red Blood Cells % 0.0/100WBC Neutrophils # (Manual) 4.210^3/ul Lymphocytes # 2.510^3/ul Monocytes # 0.710^3/ul Eosinophils # 0.310^3/ul Basophils # 0.010^3/ul Nucleated Red Blood Cells # 0.010^3/ul Prothrombin Time 12.2Sec Prothrombin Time Ratio 1.0 INR International Normalized Ratio 0.91 Activated Partial Thromboplast Time 30.7Sec Sodium Level 143mmol/L Potassium Level 3.7mmol/L Chloride Level 102mmol/L Carbon Dioxide Level 28mmol/L Anion Gap 17 Blood Urea Nitrogen 19mg/dl Creatinine 0.68mg/dl Glucose Level 167mg/dl Hemoglobin A1c 6.2% Calcium Level 9.4mg/dl Troponin I < 0.012ng/ml Bedside Glucose 145mg/dL Current Medications Medications (Trade) Dose Ordered Sig/Reanna Route PRN Reason Start Time Stop Time Status Last Admin Dose Admin Aspirin (Aspirin) 325 mg ONCE ONCE PO 07/01/17 01:00 07/01/17 01:01 DC 07/01/17 01:13 Lorazepam (Ativan) 1 mg ONCE ONCE IV 07/01/17 01:00 07/01/17 01:01 DC 07/01/17 01:13 Ondansetron HCl (Zofran Inj) 4 mg ER BRIDGE PRN IV NAUSEA AND/OR VOMITING 07/01/17 02:30 07/02/17 02:29 Acetaminophen (Tylenol Tab) 650 mg ER BRIDGE PRN PO MILD PAIN/FEVER 07/01/17 02:30 07/02/17 02:29 Procedures/MDM EKG read by me: Rate/Rhythm: Regular rate and rhythm at a normal rate intervals: Normal Impression: No evidence of ischemia or arrhythmia CT brain negative for intracranial hemorrhage per radiology. Patient is a 46-year-old female who presents with a possible stroke. Evaluation and code stroke were called at 0015. The patient went to CT scan at 0020. I spoke with the tele-neurologist Dr. Islas at 0023. I was still awaiting a consult at 0039. At 0047 Dr[address] Islas called back and we decided together that after evaluation the patient would not be a good TPA candidate and the risks would outweigh the benefits. The patient's NIH stroke scale at that time was 3. However Dr. Islas also felt that this could potentially be more related to anxiety and stress. There is also my concern for possible seizure-like activity with rhythmic shaking of her right hand but Dr. Islas did not feel that this was seizure based on her physical exam. The patient was given aspirin after she passed a swallow evaluation. She will not receive TPA. She will be admitted to the care of Dr. Doherty from the panel team to a telemetry bed. Critical Care: Time: 35 minutes excluding all billable procedures. Treatments/Evaluations: Close monitoring and treatment of unstable vital signs, cardiorespiratory, and neurologic status, while maintaining tight balance of fluid, respiratory, and cardiac interventions. Departure Diagnosis: Primary Impression: Stroke Qualified Code: I63.9 - Cerebrovascular accident (CVA), unspecified mechanism Additional Impression: Seizure Condition: DESTIN Flores MD Jul 01, 2017 03:16
[2017-07-01] MEDS ORDERED: LORAZEPAM 2 MG INJ IV PRN (08:30)
--- NOTE | 2017-07-01 10:52 | RADRPT ---
PROCEDURE: US carotid arteries. CLINICAL INDICATION: Cerebrovascular accident. TECHNIQUE: Multiple sonographic images of the carotid arteries and vertebral arteries were obtaine d utilizing khan scale, duplex, and color-flow imaging. The images were reviewed on a PACS workstati on. COMPARISON: No prior studies are available for comparison. FINDINGS: Evaluation of the right carotid bifurcation region reveals mild atherosclerotic disease. Evaluation of the left carotid bifurcation region reveals mild atherosclerotic disease. There is antegrade flow within the vertebral arteries bilaterally. RIGHT CAROTID MEASUREMENTS: Common Carotid [id number] (cm/sec) Internal Carotid Artery 94 (cm/sec) External Carotid Artery 78 (cm/sec) Vertebral Artery 61 (cm/sec) Internal Carotid/Common Carotid1.5 LEFT CAROTID MEASUREMENTS: Common Carotid [id number] (cm/sec) Internal Carotid Artery 69 (cm/sec) External Carotid Artery 47 (cm/sec) Vertebral Artery 73 (cm/sec) Internal Carotid/Common Carotid1.6 Validated velocity measurements with angiographic measurements. Velocity criteria are extrapolated f rom diameter data as defined by the Society of Radiologists in Ultrasound Consensus Conference. Radi ology 2003; 229;340-346. This study does indirectly reference the measurement of the distal ICA niya meter as the denominator for stenosis measurement. IMPRESSION: 1. Less than 50% stenosis bilaterally in the internal carotid arteries. 2. Normal antegrade flow in the vertebral arteries bilaterally. RPTAT: QQ SRU Consensus Conference Criteria for the Diagnosis of Carotid Artery Stenosis* Degree of Stenosis, % ICA PSV, cm/sec Plaque Estimate, % ICA/CCA PSV Ratio Normal <125 None <2.0 <50 <125 <50 <2.0 50 69 125-230 >50 2.0-4.0 >70 but less than near occlusion >230 >50 <4.0 Near occlusion High, low, or undetectable Visible Variable Total occlusion Undetectable Visible, no detectable lumen Not applicable *Cartoid artery stenosis: khan-scale and Doppler US diagnosis. Society of Radiologists in Ultrasound Consensus Conference. Radiology 2003; 229: 340-346 .Carlos Bahena MD, Date Time Electronically viewed and signed by .Carlos Bahena MD, on 07/01/2017 10:52 .R/
[2017-07-01] MEDS: ASPIRIN (EC) 81 MG TAB PO SCH (11:36)
[2017-07-01] MEDS: FAMOTIDINE 20 MG TAB PO SCH ×2 (11:36→21:48)
[2017-07-01 11:45] LABS: ALBUMIN 3.6 g/dl (3.3-4.9); BILIRUBIN,INDIRECT 0.1 mg/dl (0-1.1); BILIRUBIN,TOTAL 0.1 mg/dl (0.2-1.3); PHOSPHORUS 2.9 mg/dl (2.5-4.9); TOTAL PROTEIN 6.8 g/dl (6.1-8.1)
[2017-07-01 11:48] LABS: CREATINE KINASE 65 IU/L (23-200)
[2017-07-01 12:02] LABS: TROPONIN-I < 0.012 ng/ml (0.00-0.12)
[2017-07-01 12:16] LABS: THYROID STIMULATING HORMONE 1.25 MIU/L (0.465-4.680)
--- NOTE | 2017-07-01 12:52 | CONS ---
Date/Time of Note Date/Time of Note DATE: 07/01/17 TIME: 12:43 Assessment/Plan Assessment/Plan Chief Complaint/Hosp Course neuro exam: AOx3, fluent speech, normal naming repetition, follows commands CN II-XII intact, except mild right facial numbness to all modalities Motor 3/5 on manual strength testing, improves with reassurance and distraction , no pronator drift sensory decreased on right all modalities DTR 2+, no babinski Coord OK, postural and resting tremor in the right hand, resolves with distraction, not consistent at times hand and at times arm A/P: S/p stressor event. Since right sided weakness, numbness, right hand tremor ; seems to be psychological vs at least psychologically exaggerated. Hx of migraines, on motrin. C/o right hip pain. Will do MRI with contrast. Doubt focal seizure, may check EEG. Ativan OTC for anxiety for now. Cont ASA for now Problems: Consultation Date/Type/Reason Admit Date/Time Jul 01, 2017 at 02:18 Type of Consultation: neurology Hx of Present Illness 46 y/o female with 20-yr hx of migraine w/o aura, daily; had a stressor event yesterday, saw a rat, has phobia of rats, developed CP, slurred speech,m right sided weakness and numbness and right hand tremor. CT head negative Respiratory: no complaints Gastrointestinal: no complaints Genitourinary: no complaints Musculoskeletal: bone/joint pain Psychological: anxiety Past Medical History Medical History: other Family History Significant Family History: no pertinent family hx Social History Alcohol Use: none Smoking Status: Never smoker Drug Use: none Exam/Review of Systems Vital Signs Vitals Vital Signs Date Time Temp Pulse Resp B/P Pulse Ox O2 Delivery O2 Flow Rate FiO2 07/01/17 11:32 98.2 82 16 133/84 99 07/01/17 06:30 Room Air Exam Constitutional: alert, oriented, well developed Psych: anxiety Head: atraumatic, normocephalic Eyes: nl conjunctiva, nl lids Neck: non-tender, supple Respiratory: clear to auscultation Cardiovascular: regular rate and rhythm Gastrointestinal: non-tender, soft Musculoskeletal: nl extremities to inspection Extremities: normal pulses Results Result Diagram: 07/01/17 0020 07/01/17 0020 Results 24 hrs Laboratory Tests Test 07/01/17 00:20 07/01/17 00:21 07/01/17 10:51 White Blood Count 7.7 Red Blood Count 4.47 Hemoglobin 13.9 Hematocrit 41.3 Mean Corpuscular Volume 92.4 Mean Corpuscular Hemoglobin 31.1 Mean Corpuscular Hemoglobin Concent 33.7 Red Cell Distribution Width 11.6 Platelet Count 344 Mean Platelet Volume 9.6 Neutrophils % 54.4 Lymphocytes % 32.6 Monocytes % 8.7 Eosinophils % 3.2 Basophils % 0.5 Nucleated Red Blood Cells % 0.0 Neutrophils # (Manual) 4.2 Lymphocytes # 2.5 Monocytes # 0.7 Eosinophils # 0.3 Basophils # 0.0 Nucleated Red Blood Cells # 0.0 Prothrombin Time 12.2 Prothrombin Time Ratio 1.0 INR International Normalized Ratio 0.91 Activated Partial Thromboplast Time 30.7 Sodium Level 143 Potassium Level 3.7 Chloride Level 102 Carbon Dioxide Level 28 Anion Gap 17 H Blood Urea Nitrogen 19 Creatinine 0.68 Glucose Level 167 Hemoglobin A1c 6.2 H Calcium Level 9.4 Troponin I < 0.012 < 0.012 Bedside Glucose 145 Phosphorus Level 2.9 Magnesium Level 2.0 Total Bilirubin 0.1 L Direct Bilirubin 0.00 Indirect Bilirubin 0.1 Aspartate Amino Transf (AST/SGOT) 36 Alanine Aminotransferase (ALT/SGPT) 38 Alkaline Phosphatase 105 Creatine Kinase 65 Creatine Kinase Index 1.1 Creatinine Kinase MB (Mass) 0.70 Total Protein 6.8 Albumin 3.6 Triglycerides Level 250 H Cholesterol Level 193 LDL Cholesterol, Calculated 105 HDL Cholesterol 38 Cholesterol/HDL Ratio 5.0 Thyroid Stimulating Hormone (TSH) 1.250 Free Thyroxine 0.95 Medications Medications Current Medications Aspirin (Halfprin) 81 mg DAILY PO ; Start 07/01/17 at 09:00 Famotidine (Pepcid) 20 mg BID PO Last administered on 07/01/17t 11:36; Admin Dose 20 MG; Start 07/01/17 at 09:00 Ondansetron HCl (Zofran Inj) 4 mg Q6H PRN IV NAUSEA AND/OR VOMITING; Start at 08:30 Lorazepam (Ativan) 1 mg Q6H PRN IV agitation / abn jerking behavi; Start at 08:30 JU HICKMAN MD Jul 01, 2017 12:52
--- NOTE | 2017-07-01 13:43 | HP ---
DATE OF ADMISSION: 07/01/2017 CHIEF COMPLAINT: Stroke-like symptoms. HISTORY OF PRESENT ILLNESS: Ms Turcios is a pleasant 46-year-old female, somewhat anxious, who apparently had a scary episode with episode of chest pain and then could not stop moving her right arm. There was some concern for a facial droop when she first came in and possibility of seizure. The code stroke was called. She was reviewed by the neurologist. Attending neurologist did not think she was a TPA candidate. They did note a highly functional exam and they though that a simple motor seizure was not likely with the shaking of her right upper extremity. The patient might have a stress reaction. The patient continues to shake her arm uncontrollably; however, and she has been admitted for further workup and management. PAST MEDICAL HISTORY: Positive mainly for acid reflux. PAST SURGICAL HISTORY: Cholecystectomy and . ALLERGIES: PATIENT HAS NO KNOWN DRUG ALLERGIES. SOCIAL HISTORY: Denies tobacco, alcohol, illicit drug use. FAMILY HISTORY: Positive for hypertension and diabetes. REVIEW OF SYSTEMS: A 12-point review of system was done. Pertinent findings as noted in HPI. PHYSICAL EXAMINATION: VITAL SIGNS: Temperature 98.3, pulse is 71, respirations 17, blood pressure 102/67, saturation 98 percent on room air. GENERAL APPEARANCE: Obese female who is somewhat anxious. Alert and oriented and continues to have jerk-like movements of her right upper extremity. HEENT: Head is normocephalic. Pupils are equal, round, reactive. Mucous membranes are moist. Posterior pharynx free of exudate. NECK: Supple. CHEST: Clear. CARDIOVASCULAR: S1 and S2. ABDOMEN: Soft, nontender, nondistended. Normoactive bowel sounds. SKIN: Without rash or jaundice. EXTREMITIES: Have no edema. MUSCULOSKELETAL EXAM: The patient has uncontrollable shaking of right upper extremity but is able to use that extremity to follow commands and grasp. There is no slurred speech. LAB VALUES: Review of her CBC showed there was completely normal. Her basic metabolic profile did have a mildly elevated glucose level but otherwise unremarkable. Troponin was negative and her hemoglobin A1c came back at 6.2, consistent with a prediabetic state. A chest x-ray showed no evidence of active cardiopulmonary disease. On the CT of the brain showed no evidence of acute intracranial hemorrhage. Neurology recommendations are noted for stress reaction and they recommended just observation in the emergency room; however, she has been admitted for persistent symptomatology. EKG did not show any acute ischemic changes. ASSESSMENT: This is a 46-year-old female who presents with right upper extremity jerking that is uncontrollable. 1. Uncontrolled jerking of right upper extremity consented for hemiballismus versus stress reaction. 2. Pre diabetes mellitus. 3. Chronic acid reflux. 4. Anxiety disorder: PLAN: To admit her to telemetry, I will give her antianxiety benzodiazepine therapy to hopefully help calm her down, I will also have a in-house neurology review the patient. I will defer the decision to do an MRI to the in-house neurologist, but will provide with supportive care. For pre diabetes she will be put on sliding scale insulin, calorie controlled diet, may benefit from diabetic education. Follow long-term outpatient control. We will also provide aspirin therapy daily while she is here. Further interventions depending on her clinical course. We will continue home medications for acid reflux and essentially go from there. Prophylaxis will be with Lovenox. Dictated By: Carlton Doherty MD /falguni/ronny /Document#: [id number]
[2017-07-01] MEDS: LORAZEPAM 0.5 MG TAB PO SCH ×2 (13:50→21:48)
--- NOTE | 2017-07-01 15:03 | RADRPT ---
PROCEDURE: MRI Brain without and with contrast. CLINICAL INDICATION: Stroke symptoms, right-sided weakness TECHNIQUE: Multiplanar MRI of the brain without and with contrast was performed on a 3.0 T scanner with the following sequences obtained: T1-weighted, T2-weighted/FLAIR, diffusion weighted (with ADC map), GRE, postcontrast T1-weighted. 10 Magnevist intravenous contrast was administered. COMPARISON: CT brain 07/01/2017 FINDINGS: No acute/recent ischemic infarction or intracranial hemorrhage / blood degradation products are iden tified. No extra-axial fluid collection is seen. No intracranial mass lesion is identified. There is no mass effect. No midline shift is identified. The ventricles and sulci are within normal limits for size and configuration. The signal intensity is unremarkable throughout the cerebrum, brainstem and cerebellum. No abnormal parenchymal, leptomeningeal or dural enhancement is identified. Flow voids are identified in the proximal intracranial arteries and dural sinuses suggesting patency . Mild right sphenoid sinus mucosal thickening with secretions are noted. IMPRESSION: 1. No evidence of acute intracranial pathology. 2. Overall unremarkable MRI of the brain. RPTAT: HH .Christiano Cadena MD, MD Date Time Electronically viewed and signed by .Christiano Cadena MD, MD on 07/01/2017 15:03 .O/
[2017-07-01 16:10] LABS: CREATINE KINASE 65 IU/L (23-200)
[2017-07-01 16:23] LABS: CK-MB 0.74 ng/ml (0.0-2.4)
[2017-07-01 16:43] LABS: TROPONIN-I < 0.012 ng/ml (0.00-0.12)
[2017-07-01 23:20] LABS: ADD UMIC YES; UR ASCORBIC ACID NEGATIVE (NEGATIVE); UR BILIRUBIN (Dip) NEGATIVE (NEGATIVE); UR BLOOD (Dip) NEGATIVE (NEGATIVE); UR CLARITY SLIGHTLY CLOUDY (CLEAR); UR COLOR STRAW (YELLOW); UR GLUCOSE (Dip) NEGATIVE (NEGATIVE); UR KETONES (Dip) NEGATIVE (NEGATIVE); UR LEUKOCYTE ESTERASE (Dip) 1+ Leu/ul (NEGATIVE); UR NITRITE (Dip) NEGATIVE (NEGATIVE); UR RBC 0 /HPF (0-5); UR SPECIFIC GRAVITY (Dip) 1.013 (1.003-1.030); UR SQUAMOUS EPITHELIAL CELL FEW /HPF (FEW); UR TOTAL PROTEIN (Dip) NEGATIVE (NEGATIVE); UR UROBILINOGEN (Dip) NEGATIVE (NEGATIVE)
[2017-07-01 23:30] LABS: BARBITURATES Negative (NEGATIVE); BENZODIAZEPINES Negative (NEGATIVE); CANNABINOIDS Negative (NEGATIVE); COCAINE Negative (NEGATIVE); OPIATES Negative (NEGATIVE)
[2017-07-02] VITALS (12 sets, daily range): BP systolic 112–132; BP diastolic 68–87; PULSE 63–95; RESP 16–19
[2017-07-02 07:26] LABS: BASOPHIL # 0.1 10^3/ul (0.0-0.1); BASOPHILS % 0.7 % (0.0-2.0); EOSINOPHILS # 0.2 10^3/ul (0.0-0.5); EOSINOPHILS % 3.4 % (0.0-7.0); HEMATOCRIT 40.5 % (37.0-47.0); HEMOGLOBIN 13.5 g/dl (12.0-16.0); LYMPHOCYTES # 2.1 10^3/ul (0.8-2.9); LYMPHOCYTES % 31.1 % (15.0-51.0); MEAN CORPUSCULAR HEMOGLOBIN 30.3 pg (29.0-33.0); MEAN CORPUSCULAR HGB CONC 33.3 g/dl (32.0-37.0); MEAN CORPUSCULAR VOLUME 90.8 fl (82.0-101.0); MONOCYTE # 0.6 10^3/ul (0.3-0.9); MONOCYTES % 9.1 % (0.0-11.0); PLATELET COUNT 305 10^3/UL (140-415); RED BLOOD COUNT 4.46 10^6/ul (4.20-5.40); RED CELL DISTRIBUTION WIDTH 11.8 % (11.5-14.5); WHITE BLOOD COUNT 6.7 10^3/ul (4.8-10.8)
[2017-07-02 07:27] LABS: MAGNESIUM 1.9 mg/dl (1.7-2.5); PHOSPHORUS 4.2 mg/dl (2.5-4.9)
[2017-07-02 08:14] LABS: CALCIUM 9.3 mg/dl (8.4-10.2); CREATININE 0.63 mg/dl (0.44-1.00); POTASSIUM 4.2 mmol/L (3.5-5.1)
[2017-07-02] MEDS: LORAZEPAM 0.5 MG TAB PO SCH ×3 (08:50→20:52)
[2017-07-02] MEDS: FAMOTIDINE 20 MG TAB PO SCH ×2 (08:50→20:53)
[2017-07-02] MEDS: ASPIRIN (EC) 81 MG TAB PO SCH (08:51)
--- NOTE | 2017-07-02 08:53 | RADRPT ---
Echocardiogram Report Patient Name: OMAR LOCO Gender: Female Date: 1970 Study Date: 01-Jul-2017 Body Coverer: Jade Weeks [facility] [[email or web address]] Location: [address] Ref. Physician: AMY GARCÍA Quality: Good Procedures: Transthoracic echocardiogram with complete 2D, M-Mode, and doppler examination. Indications: possible TIA. 2D/M Mode Doppler Measurement Value Normal Ranges Measurement Value Normal Ranges LVIDd 2D 3.6 3.5 - 5.6 cm AV Peak [place] 1.2 m/sec LVIDs 2D 2.2 2.1 - 4.1 cm AV Peak PG 6.0 mmHg FS 2D 38.7 % LVOT Peak [place] 1.0 m/sec LVPWd 2D 0.8 0.6 - 1.1 cm LVOT Peak PG 4.0 mmHg IVSd 2D 0.9 0.6 - 1.1 cm MV E Peak [place] 0.8 m/sec IVS/LVPW 2D 1.1 MV A Peak [place] 0.7 m/sec AoR Diam 2D 2.6 2.0 - 3.7 cm MV E/A 1.2 LA/Ao 2D 1 0 - 1 MV Decel Time 158 msec EDV 2D 46.3 cm3 MV E/A 1.2 ESV 2D 10.6 cm3 TR Peak [place] 2.3 m/sec LA Dimen 2D 2.7 2.3 - 4.0 cm TR Peak PG 22.0 mmHg RVSP 25.0 mmHg Findings Left Ventricle: Normal left ventricular systolic function. Normal left ventricular cavity size. Normal left ventricular wall thickness. Ejection fraction is visually estimated at 65 %. Tissue Doppler/Mitral Doppler indices are within normal limits. Right Ventricle: Normal right ventricular size. Normal right ventricular systolic function. Left Atrium: The left atrium is normal in size. Right Atrium: The right atrium is normal in size. Mitral Valve: Normal appearance and function of the mitral valve with trace physiologic regurgitation. Aortic Valve: Normal appearance of the aortic valve. No significant aortic stenosis or insufficiency. Tricuspid Valve: Normal appearance of the tricuspid valve. Estimated peak PA systolic pressure 25 mmHg. There is trace tricuspid regurgitation. Pulmonic Valve: Normal pulmonic valve appearance. Pericardium: Normal pericardium with no significant pericardial effusion. Aorta: Normal aortic root. IVC: Normal size and normal respiratory collapse consistent with normal right atrial pressure. Conclusions 1.Normal left ventricular systolic function. Normal left ventricular cavity size. Normal left ventricular wall thickness. Ejection fraction is visually estimated at 65 %. Tissue Doppler/Mitral Doppler indices are within normal limits. 2.No significant valvular stenosis or regurgitation seen. 3.Estimated peak PA systolic pressure 25 mmHg based on RA pressure of 3 mmHg. Electronically Signed By: Tiago Fine 02-Jul-2017 08:52:16 -0700 Patient Name: OMAR LOCO Study Date: 01-Jul-2017 [id number]
--- NOTE | 2017-07-02 16:00 | PN ---
Date/Time of Note Date/Time of Note DATE: 07/02/17 TIME: 15:57 Assessment/Plan VTE Prophylaxis VTE Prophylaxis Intervention: SCD's Lines/Catheters IV Catheter Type (from [facility] [email or web address] Saline Lock Assessment/Plan Chief Complaint/Hosp Course Assessment and plan 1. Right upper and right lower extremity weakness. Possible psychosomatic versus migraine hemiplegia given patient's history of migraines. Still noted with weakness. Physical therapy to evaluate. Tentative plan for home with home health services. Follow-up with neurologist for other possible etiology. 2. GERD. Continue on H2 jw 3. Dyslipidemia. Patient to be started on atorvastatin 5. History. Continue antibiotics. Disposition plan: Patient noted with less than 50% stenosis bilaterally in the internal carotid arteries. Carotid Doppler. Also brain MRI without and with contrast showed no evidence of acute intracranial pathology. Patient still presenting symptoms of weakness on right upper and right lower extremity. Follow-up with neurologist for the possible etiology. Anticipate discharge within the next 24 hours if medically stable and cleared by consultants. Plan for home discharge with home health services for physical therapy and from a walker Discussed plan of care with Dr. Ibarra Problems: Subjective 24 Hr Interval Summary Free Text/Dictation Still with noted right-sided weakness on the right upper and lower extremities. Reports difficulty with ambulation. Exam/Review of Systems Vital Signs Vitals Vital Signs Date Time Temp Pulse Resp B/P Pulse Ox O2 Delivery O2 Flow Rate FiO2 07/02/17 15:41 98.1 77 19 121/87 99 07/01/17 06:30 Room Air Intake and Output 07/01/17 07/01/17 07/02/17 15:00 23:00 07:00 Intake Total 250 ml Balance 250 ml Exam Constitutional: alert, oriented Psych: nl mood/affect Head: normocephalic Eyes: nl conjunctiva Respiratory: clear to auscultation, normal air movement Cardiovascular: regular rate and rhythm Gastrointestinal: non-tender, soft Musculoskeletal: other (With reported right upper extremity and right lower extremity weakness), No nl gait and stance Neurological: nl mental status, nl speech Results Result Diagram: 07/02/17 0620 07/02/17 0620 Results 24 hrs Laboratory Tests Test 07/01/17 20:00 07/02/17 06:20 Urine Color STRAW Urine Clarity SLIGHTLY CLOUDY A Urine pH 6.0 Urine Specific [place] 1.013 Urine Ketones NEGATIVE Urine Nitrite NEGATIVE Urine Bilirubin NEGATIVE Urine Urobilinogen NEGATIVE Urine Leukocyte Esterase 1+ H Urine Microscopic RBC 0 Urine Microscopic WBC 7 H Urine Squamous Epithelial Cells FEW Urine Hemoglobin NEGATIVE Urine Glucose NEGATIVE Urine Total Protein NEGATIVE Urine Test NEGATIVE Urine Opiates Screen Negative Urine Barbiturates Negative Urine Amphetamines Screen Negative Urine Benzodiazepines Screen Negative Urine Cocaine Screen Negative Urine Cannabinoids Negative White Blood Count 6.7 Red Blood Count 4.46 Hemoglobin 13.5 Hematocrit 40.5 Mean Corpuscular Volume 90.8 Mean Corpuscular Hemoglobin 30.3 Mean Corpuscular Hemoglobin Concent 33.3 Red Cell Distribution Width 11.8 Platelet Count 305 Mean Platelet Volume 10.0 Neutrophils % 55.0 Lymphocytes % 31.1 Monocytes % 9.1 Eosinophils % 3.4 Basophils % 0.7 Nucleated Red Blood Cells % 0.0 Neutrophils # (Manual) 3.7 Lymphocytes # 2.1 Monocytes # 0.6 Eosinophils # 0.2 Basophils # 0.1 Nucleated Red Blood Cells # 0.0 Sodium Level 145 H Potassium Level 4.2 Chloride Level 105 Carbon Dioxide Level 24 Anion Gap 20 H Blood Urea Nitrogen 17 Creatinine 0.63 Glucose Level 99 # Calcium Level 9.3 Phosphorus Level 4.2 Magnesium Level 1.9 Triglycerides Level 247 H Cholesterol Level 211 H LDL Cholesterol, Calculated 120 HDL Cholesterol 42 Cholesterol/HDL Ratio 5.0 Medications Medications Current Medications Aspirin (Halfprin) 81 mg DAILY PO Last administered on 07/02/17 08:51; Admin Dose 81 MG; Start 07/01/17 at 09:00 Famotidine (Pepcid) 20 mg BID PO Last administered on 07/02/17 08:50; Admin Dose 20 MG; Start 07/01/17 at 09:00 Ondansetron HCl (Zofran Inj) 4 mg Q6H PRN IV NAUSEA AND/OR VOMITING; Start at 08:30 Lorazepam (Ativan) 1 mg Q6H PRN IV agitation / abn jerking behavi; Start at 08:30 Ibuprofen (Motrin) 600 mg Q6H PRN PO pain; Start 07/01/17 at 12:30 Lorazepam (Ativan) 0.5 mg TID PO Last administered on 07/02/17 08:50; Admin Dose 0.5 MG; Start 07/01/17 at 13:00 Atorvastatin Calcium (Lipitor) 20 mg HS PO ; Start 07/02/17 at 21:00 JENARO MELLO Jul 02, 2017 16:00
--- NOTE | 2017-07-02 20:20 | CONS ---
Date/Time of Note Date/Time of Note DATE: 07/02/17 TIME: 20:17 Consult Date/Type/Reason Admit Date/Time Jul 01, 2017 at 02:18 Initial Consult Date Type of Consultation: neurology Subjective feels better, stronger in th erue, able to ambulate, occasional RUE tremulousness MRI brain EEG WNL Objective Vital Signs Date Time Temp Pulse Resp B/P Pulse Ox O2 Delivery O2 Flow Rate FiO2 07/02/17 19:59 98.7 87 18 122/84 97 07/01/17 06:30 Room Air Intake and Output 07/01/17 07/01/17 07/02/17 15:00 23:00 07:00 Intake Total 250 ml Balance 250 ml Results/Medications Result Diagram: 07/02/1761907/02/1720 Results 24 hrs Laboratory Tests Test 07/02/17 06:20 White Blood Count 6.7 Red Blood Count 4.46 Hemoglobin 13.5 Hematocrit 40.5 Mean Corpuscular Volume 90.8 Mean Corpuscular Hemoglobin 30.3 Mean Corpuscular Hemoglobin Concent 33.3 Red Cell Distribution Width 11.8 Platelet Count 305 Mean Platelet Volume 10.0 Neutrophils % 55.0 Lymphocytes % 31.1 Monocytes % 9.1 Eosinophils % 3.4 Basophils % 0.7 Nucleated Red Blood Cells % 0.0 Neutrophils # (Manual) 3.7 Lymphocytes # 2.1 Monocytes # 0.6 Eosinophils # 0.2 Basophils # 0.1 Nucleated Red Blood Cells # 0.0 Sodium Level 145 H Potassium Level 4.2 Chloride Level 105 Carbon Dioxide Level 24 Anion Gap 20 H Blood Urea Nitrogen 17 Creatinine 0.63 Glucose Level 99 # Calcium Level 9.3 Phosphorus Level 4.2 Magnesium Level 1.9 Triglycerides Level 247 H Cholesterol Level 211 H LDL Cholesterol, Calculated 120 HDL Cholesterol 42 Cholesterol/HDL Ratio 5.0 Medications Current Medications Aspirin (Halfprin) 81 mg DAILY PO Last administered on 07/02/17 08:51; Admin Dose 81 MG; Start 07/01/17 at 09:00 Famotidine (Pepcid) 20 mg BID PO Last administered on 07/02/17 08:50; Admin Dose 20 MG; Start 07/01/17 at 09:00 Ondansetron HCl (Zofran Inj) 4 mg Q6H PRN IV NAUSEA AND/OR VOMITING; Start at 08:30 Lorazepam (Ativan) 1 mg Q6H PRN IV agitation / abn jerking behavi; Start at 08:30 Ibuprofen (Motrin) 600 mg Q6H PRN PO pain; Start 07/01/17 at 12:30 Lorazepam (Ativan) 0.5 mg TID PO Last administered on 07/02/17t 08:50; Admin Dose 0.5 MG; Start 07/01/17 at 13:00 Atorvastatin Calcium (Lipitor) 20 mg HS PO ; Start 07/02/17 at 21:00 Assessment/Plan Chief Complaint/Hosp Course neuro exam: AOx3, fluent speech, normal naming repetition, follows commands CN II-XII intact, except mild right facial numbness to all modalities Motor 4/5 on manual strength testing, improves with reassurance and distraction , no pronator drift, trace down drift sensory decreased on right all modalities DTR 2+, no babinski Coord OK, no tremor gait slightly limting initially then gets better A/P: S/p stressor event. Since c/o improving right sided weakness, numbness, right hand tremor; seems to be psychological. Hx of migraines, on motrin. Problems: JU HICKMAN MD Jul 02, 2017 20:20
[2017-07-02] MEDS: ATORVASTATIN 20 MG TAB PO SCH (20:52)
[2017-07-03] VITALS (10 sets, daily range): BP systolic 109–139; BP diastolic 64–78; PULSE 66–85; RESP 16–20
--- NOTE | 2017-07-03 03:13 | PRO ---
DATE OF PROCEDURE: 07/02/2017 EEG Report INDICATION: The patient is a 46-year-old lady who presented with right-sided weakness and tremulousness of the right hand after some stressor event. DESCRIPTION OF PROCEDURE: A routine EEG was recorded digitally. Scalp to scalp and scalp to ear montages were recorded and reviewed. All impedances were measured and recorded. Disc electrodes were placed in accordance to International 10/20 system of electrode placements. Symmetrically distributed background activity was seen of small amplitude ranging in frequency between 8-9 cycles per second in the awake state. Photic stimulation produces no definite driving. Hyperventilation elicits no epileptiform activity. When the patient gets drowsy and falls asleep, background rhythm gets slower further 6 cycles per second, occasional vertex waves were seen. No signs of ongoing electrographic seizures. No lateralized slowing. No epileptiform activity seen. IMPRESSION: Normal study. Correlate clinically. Dictated By: Arian Murrieta MD /falguni/tylor /Document#: [id number]
[2017-07-03] MEDS: LORAZEPAM 0.5 MG TAB PO SCH ×3 (08:34→20:06)
[2017-07-03] MEDS: ASPIRIN (EC) 81 MG TAB PO SCH (08:35)
[2017-07-03] MEDS: FAMOTIDINE 20 MG TAB PO SCH ×2 (08:35→20:06)
[2017-07-03] MEDS: IBUPROFEN 600 MG TAB PO PRN ×2 (11:06→20:05)
[2017-07-03 11:20] LABS: BASOPHIL # 0.1 10^3/ul (0.0-0.1); BASOPHILS % 0.7 % (0.0-2.0); EOSINOPHILS # 0.1 10^3/ul (0.0-0.5); EOSINOPHILS % 1.9 % (0.0-7.0); HEMATOCRIT 39.4 % (37.0-47.0); HEMOGLOBIN 13.4 g/dl (12.0-16.0); LYMPHOCYTES # 1.8 10^3/ul (0.8-2.9); LYMPHOCYTES % 25.5 % (15.0-51.0); MEAN CORPUSCULAR HEMOGLOBIN 31.2 pg (29.0-33.0); MEAN CORPUSCULAR VOLUME 91.6 fl (82.0-101.0); MEAN PLATELET VOLUME 9.9 fl (7.4-10.4); MONOCYTE # 0.7 10^3/ul (0.3-0.9); MONOCYTES % 9.8 % (0.0-11.0); NEUTROPHILS % 61.4 % (39.0-77.0); PLATELET COUNT 295 10^3/UL (140-415); RED CELL DISTRIBUTION WIDTH 11.6 % (11.5-14.5)
[2017-07-03 11:39] LABS: CALCIUM 9.3 mg/dl (8.4-10.2); CREATININE 0.71 mg/dl (0.44-1.00); POTASSIUM 4.2 mmol/L (3.5-5.1)
[2017-07-03] MEDS ORDERED: ATOR20TA65 PO (13:21)
[2017-07-03] MEDS ORDERED: ONDA4TAB11 PO (13:21)
[2017-07-03] MEDS ORDERED: ASPI-664 PO (13:21)
--- NOTE | 2017-07-03 13:23 | PDOCDIS ---
Discharge Instructions DIAGNOSIS Discharge Diagnosis 1. Right upper and right lower extremity weakness. likely secondary to stressor event 2. GERD. 3. Dyslipidemia. CONDITION Patient Condition: Stable HOME CARE INSTRUCTIONS: Diet Instructions: Low Fat /CholesterolSpecial Diet: 1800 FOLLOW UP/APPOINTMENTS Follow-up Plan 1. Follow up with your primary care provider in one week JENARO MELLO Jul 03, 2017 13:23
[2017-07-03] MEDS ORDERED: BUTA1CAP38 PO (13:24)
--- NOTE | 2017-07-03 15:20 | DS ---
Date/Time of Note Date/Time of Note DATE: 07/03/17 TIME: 15:16 Discharge Summary Admission/Discharge Info Admit Date/Time Jul 01, 2017 at 02:18 Discharge Date/Time Discharge Diagnosis 1. Right upper and right lower extremity weakness. likely secondary to stressor event 2. GERD. 3. Dyslipidemia. Patient Condition: Stable [facility]ults [facility] This is a 46-year-old female with history of anxiety who came to [facility] due to reports of right-sided weakness on right upper and right lower extremity. She was brought to [facility] and code stroke was initiated however after being seen by neurologist she was not a candidate for TPA and he did not high functional exam. Patient was also seen by in-house neurologist who did have MRI of the brain done which per exam showed no evidence of acute intracranial pathology. Additionally carotid Doppler was done that showed less than 50% stenosis bilaterally in the internal carotid arteries and normal antegrade flow in the vertebral arteries bilaterally. Brain CT of note also was negative for any evidence of intracranial hemorrhage or mass-effect or large territorial infarct. Patient did report that she does have history of high-grade and also under a lot of stress at home. Suspect etiology of her right-sided weakness was psychosomatic versus migraine hemiplegia. During the course of stay she did improve. She did have less tremors noted on right upper extremity and she did have return of strength however her right lower extremity still was reported to be weak. She was seen by physical therapy and advised her home with home health services for physical therapy evaluation as well as with front wheel walker for which we did get. There is also suspect that her right lower extremity pain/weakness may have been from sciatica. Nevertheless we did get physical therapy the patient and she did improve. Home health services were also set up. The plan of care was discussed with the patient and patient did verbalize understanding. She was otherwise otherwise medically with statin medication for dyslipidemia as well as pain medication for her migraines. The plan of care was discussed with the patient and patient did verbalize her understanding. On the day of discharge patient was in stable condition Discussed plan of care with Dr. Ibarra Home Meds Active Scripts Xztcjnjaii-Icugmlabzfokg-Ndfcergb* (Fioricet*) 50-300-40 Mg Capsule, 1 CAP PO Q4H Y for cephalgia, #20 CAP Prov:JENAOR MELLO 07/03/17 Atorvastatin Calcium (Atorvastatin Calcium) 20 Mg Tablet, 20 MG PO HS for 30 Days, TAB Prov:JENARO MELLO 07/03/17 Aspirin* (Aspirin* EC) 81 Mg Tablet.dr, 81 MG PO DAILY for 30 Days Prov:JENARO MELLO 07/03/17 Ondansetron (Zofran Odt) 4 Mg Tab.rapdis, 4 MG PO Q6, #20 Prov:JENARO MELLO 07/03/17 Ranitidine Hcl* (Zantac*) 150 Mg Tablet, 150 MG PO BID Y for EPIGASTRIC PAIN, # 30 TAB Prov:CAROL VALLE DO 06/14/17 Ibuprofen* (Ibuprofen*) 600 Mg Tablet, 600 MG PO Q6H Y for PA, #30 TAB Prov:PHYLLIS MUELLER NP 08/19/15 Discontinued Reported Medications Ibuprofen (Motrin) 600 Mg Tablet, 600 MG PO Q8 PRN 12/27/12 Discontinued Scripts Cephalexin* (Keflex*) 500 Mg Capsule, 500 MG PO TID for 3 Days, CAP Prov:CAROL VALLE DO 06/14/17 Follow-up Plan CONDITION Patient Condition: Stable HOME CARE INSTRUCTIONS: Diet Instructions: Low Fat /CholesterolSpecial Diet: 1800 FOLLOW UP/APPOINTMENTS Follow-up Plan 1. Follow up with your primary care provider in one week Primary Care Provider José Miguel Gee MD Time spent on discharge: > 30 minutes Pending Labs Laboratory Tests Test 07/03/17 10:10 White Blood Count 7.010^3/ul (4.8-10.8) Red Blood Count 4.3010^6/ul (4.20-5.40) Hemoglobin 13.4g/dl (12.0-16.0) Hematocrit 39.4% (37.0-47.0) Mean Corpuscular Volume 91.6fl (82.0-101.0) Mean Corpuscular Hemoglobin 31.2pg (29.0-33.0) Mean Corpuscular Hemoglobin Concent 34.0g/dl (32.0-37.0) Red Cell Distribution Width 11.6% (11.5-14.5) Platelet Count 11627^3/UL (140-415) Mean Platelet Volume 9.9fl (7.4-10.4) Neutrophils % 61.4% (39.0-77.0) Lymphocytes % 25.5% (15.0-51.0) Monocytes % 9.8% (0.0-11.0) Eosinophils % 1.9% (0.0-7.0) Basophils % 0.7% (0.0-2.0) Nucleated Red Blood Cells % 0.0/100WBC (0.0-0.0) Neutrophils # (Manual) 4.310^3/ul (1.7-7.5) Lymphocytes # 1.810^3/ul (0.8-2.9) Monocytes # 0.710^3/ul (0.3-0.9) Eosinophils # 0.110^3/ul (0.0-0.5) Basophils # 0.110^3/ul (0.0-0.1) Nucleated Red Blood Cells # 0.010^3/ul (0.0-0.0) Sodium Level 139mmol/L (135-144) Potassium Level 4.2mmol/L (3.5-5.1) Chloride Level 101mmol/L (97-110) Carbon Dioxide Level 24mmol/L (21-31) Anion Gap 18 (8-16) Blood Urea Nitrogen 17mg/dl (7-20) Creatinine 0.71mg/dl (0.44-1.00) Glucose Level 107mg/dl (70-220) Calcium Level 9.3mg/dl (8.4-10.2) JENARO MELLO Jul 03, 2017 15:20
[2017-07-03] MEDS: ATORVASTATIN 20 MG TAB PO SCH (20:06)
[2017-07-04 01:52] VITALS: BP 109/59; RESP 20
[2017-07-04 07:54] VITALS: BP 108/65; RESP 18
[2017-07-04] MEDS: FAMOTIDINE 20 MG TAB PO SCH (08:30)
[2017-07-04] MEDS: LORAZEPAM 0.5 MG TAB PO SCH ×2 (08:30→13:18)
[2017-07-04] MEDS: ASPIRIN (EC) 81 MG TAB PO SCH (08:30)
[2017-07-04] MEDS: IBUPROFEN 600 MG TAB PO PRN (08:31)
[2017-07-04 11:47] LABS: CALCIUM 9.2 mg/dl (8.4-10.2); CREATININE 0.67 mg/dl (0.44-1.00); POTASSIUM 4.3 mmol/L (3.5-5.1)
[2017-07-04 11:53] LABS: BASOPHILS % 0.6 % (0.0-2.0); EOSINOPHILS # 0.2 10^3/ul (0.0-0.5); EOSINOPHILS % 2.3 % (0.0-7.0); HEMOGLOBIN 13.5 g/dl (12.0-16.0); LYMPHOCYTES # 1.8 10^3/ul (0.8-2.9); LYMPHOCYTES % 25.8 % (15.0-51.0); MEAN CORPUSCULAR HEMOGLOBIN 30.3 pg (29.0-33.0); MEAN CORPUSCULAR HGB CONC 33.8 g/dl (32.0-37.0); MEAN CORPUSCULAR VOLUME 89.9 fl (82.0-101.0); MONOCYTE # 0.6 10^3/ul (0.3-0.9); MONOCYTES % 8.7 % (0.0-11.0); NEUTROPHILS % 61.6 % (39.0-77.0); PLATELET COUNT 297 10^3/UL (140-415); RED BLOOD COUNT 4.45 10^6/ul (4.20-5.40); RED CELL DISTRIBUTION WIDTH 11.9 % (11.5-14.5)
[2017-07-04] MEDS ORDERED: KETOROLAC 30 MG INJ IV STA (12:59)
[2017-07-04] MEDS ORDERED: KETOROLAC 30 MG INJ IV PRN (13:00)
--- NOTE | 2017-07-04 13:02 | PN ---
Date/Time of Note Date/Time of Note DATE: 07/04/17 TIME: 12:58 Assessment/Plan VTE Prophylaxis VTE Prophylaxis Intervention: SCD's Lines/Catheters IV Catheter Type (from Nrs): Saline Lock Urinary Cath still in place: No Assessment/Plan Chief Complaint/Hosp Course Assessment and plan 1. Right upper and right lower extremity weakness. Possible psychosomatic versus migraine hemiplegia given patient's history of migraines. Still with reported weakness on right lower extremity. Continue with physical therapy. Awaiting home health services for physical therapy and walker 2. GERD. Continue on H2 jw 3. Dyslipidemia. Patient to be started on atorvastatin 5. History. Continue antibiotics. Disposition plan: Patient is plan for discharge on July 03, 2017 however we were still waiting for home health services to be set up and patient floor from a walker. One set up for plan for discharge. Follow-up on x-ray of right lower extremity due to reported right knee pain weakness. Discussed plan of care with Dr. Ibarra Problems: Subjective 24 Hr Interval Summary Free Text/Dictation Reports having some right knee pain. Exam/Review of Systems Vital Signs Vitals Vital Signs Date Time Temp Pulse Resp B/P Pulse Ox O2 Delivery O2 Flow Rate FiO2 07/04/17 07:54 98.4 78 18 108/65 97 07/01/17 06:30 Room Air Intake and Output 07/03/17 07/03/17 07/04/17 15:00 23:00 07:00 Intake Total 600 ml Balance 600 ml Exam Constitutional: alert, oriented Psych: nl mood/affect Respiratory: normal air movement Cardiovascular: regular rate and rhythm Gastrointestinal: non-tender, soft Musculoskeletal: nl gait and stance Neurological: nl mental status, nl speech, other (with right lower extremity weakness ) Results Result Diagram: 07/04/17 0955 07/04/17 0955 Results 24 hrs Laboratory Tests Test 07/04/17 09:55 White Blood Count 7.0 Red Blood Count 4.45 Hemoglobin 13.5 Hematocrit 40.0 Mean Corpuscular Volume 89.9 Mean Corpuscular Hemoglobin 30.3 Mean Corpuscular Hemoglobin Concent 33.8 Red Cell Distribution Width 11.9 Platelet Count 297 Mean Platelet Volume 10.0 Neutrophils % 61.6 Lymphocytes % 25.8 Monocytes % 8.7 Eosinophils % 2.3 Basophils % 0.6 Nucleated Red Blood Cells % 0.0 Neutrophils # (Manual) 4.3 Lymphocytes # 1.8 Monocytes # 0.6 Eosinophils # 0.2 Basophils # 0.0 Nucleated Red Blood Cells # 0.0 Sodium Level 143 Potassium Level 4.3 Chloride Level 102 Carbon Dioxide Level 26 Anion Gap 19 H Blood Urea Nitrogen 19 Creatinine 0.67 Glucose Level 131 Calcium Level 9.2 Medications Medications Current Medications Aspirin (Halfprin) 81 mg DAILY PO Last administered on 07/04/17 08:30; Admin Dose 81 MG; Start 07/01/17 at 09:00 Famotidine (Pepcid) 20 mg BID PO Last administered on 07/04/17 08:30; Admin Dose 20 MG; Start 07/01/17 at 09:00 Ondansetron HCl (Zofran Inj) 4 mg Q6H PRN IV NAUSEA AND/OR VOMITING; Start at 08:30 Lorazepam (Ativan) 1 mg Q6H PRN IV agitation / abn jerking behavi; Start at 08:30 Ibuprofen (Motrin) 600 mg Q6H PRN PO pain Last administered on 07/04/17 08:31 ; Admin Dose 600 MG; Start 07/01/17 at 12:30 Lorazepam (Ativan) 0.5 mg TID PO Last administered on 07/04/17 08:30; Admin Dose 0.5 MG; Start 07/01/17 at 13:00 Atorvastatin Calcium (Lipitor) 20 mg HS PO Last administered on 07/03/17 20:06 ; Admin Dose 20 MG; Start 07/02/17 at 21:00 JENARO MELLO Jul 04, 2017 13:02
--- NOTE | 2017-07-04 14:09 | RADRPT ---
PROCEDURE: XR Knee. CLINICAL INDICATION: Left knee pain. TECHNIQUE: Two views of the right knee are available for review. COMPARISON: None. FINDINGS: There is mild patellofemoral joint space narrowing indicative of mild arthrosis. There is a small j oint effusion. No evidence for fracture. No evidence for subluxation or dislocation. IMPRESSION: 1. No fracture identified. 2. Small joint effusion. RPTAT: XX .Jose Camacho MD, MD Date Time Electronically viewed and signed by .Jose Camacho MD, on 07/04/2017 14:09 .T/
[2017-07-04 14:26] VITALS: BP 115/77; RESP 18
[2017-07-04] MEDS ORDERED: TRAM50TA2 PO (14:30)
--- NOTE | 2017-07-10 16:25 | DS ---
Date/Time of Note Date/Time of Note DATE: 07/10/17 TIME: 16:22 Discharge Summary Admission/Discharge Info Admit Date/Time Jul 01, 2017 at 02:18 Discharge Date/Time Jul 04, 2017 at 16:05 Discharge Diagnosis 1. Right upper and right lower extremity weakness. likely secondary to stressor event 2. GERD. 3. Dyslipidemia. Patient Condition: Stable Consults 1. Dr. Arian [facility] Hospital Course This is a 46-year-old female with history of anxiety who came to [facility] due to reports of right-sided weakness on right upper and right lower extremity. She was brought to [facility] and code stroke was initiated however after being seen by neurologist she was not a candidate for TPA and he did not high functional exam. Patient was also seen by in-house neurologist who did have MRI of the brain done which per exam showed no evidence of acute intracranial pathology. Additionally carotid Doppler was done that showed less than 50% stenosis bilaterally in the internal carotid arteries and normal antegrade flow in the vertebral arteries bilaterally. Brain CT of note also was negative for any evidence of intracranial hemorrhage or mass-effect or large territorial infarct. Patient did report that she does have history of high-grade and also under a lot of stress at home. Suspect etiology of her right-sided weakness was psychosomatic versus migraine hemiplegia. During the course of stay she did improve. She did have less tremors noted on right upper extremity and she did have return of strength however her right lower extremity still was reported to be weak. She was seen by physical therapy and advised her home with home health services for physical therapy evaluation as well as with front wheel walker for which we did get. There is also suspect that her right lower extremity pain/weakness may have been from sciatica. Nevertheless we did get physical therapy the patient and she did improve. Home health services were also set up. The plan of care was discussed with the patient and patient did verbalize understanding. She was otherwise otherwise medically with statin medication for dyslipidemia as well as pain medication for her migraines. Patient is plan for discharge on July 03, 2017 however we were still waiting for home health services to be set up and patient floor from a walker. After home health services were set up , patient was ready for discharge. The plan of care was discussed with the patient and patient did verbalize her understanding. On the day of discharge patient was in stable condition Discussed plan of care with Dr. Ibarra Home Meds Active Scripts Tramadol HCl (Tramadol HCl) 50 Mg Tablet, 50 MG PO Q6H Y for PAIN, #25 TAB Prov:JENARO MELLO 07/04/17 Jkcqrydzen-Ndugrhkmtxtvm-Gaqxvrqt* (Fioricet*) 50-300-40 Mg Capsule, 1 CAP PO Q4H Y for cephalgia, #20 CAP Prov:JENARO MELLO 07/03/17 Atorvastatin Calcium (Atorvastatin Calcium) 20 Mg Tablet, 20 MG PO HS for 30 Days, TAB Prov:JENARO MELLO 07/03/17 Aspirin* (Aspirin* EC) 81 Mg Tablet.dr, 81 MG PO DAILY for 30 Days Prov:JENARO MELLO 07/03/17 Ondansetron (Zofran Odt) 4 Mg Tab.rapdis, 4 MG PO Q6, #20 Prov:JENARO MELLO 07/03/17 Ranitidine Hcl* (Zantac*) 150 Mg Tablet, 150 MG PO BID Y for EPIGASTRIC PAIN, # 30 TAB Prov:CAROL VALLE DO 06/14/17 Ibuprofen* (Ibuprofen*) 600 Mg Tablet, 600 MG PO Q6H Y for PA, #30 TAB Prov:PHYLLIS MUELLER NP 08/19/15 Discontinued Reported Medications Ibuprofen (Motrin) 600 Mg Tablet, 600 MG PO Q8 PRN 12/27/12 Discontinued Scripts Cephalexin* (Keflex*) 500 Mg Capsule, 500 MG PO TID for 3 Days, CAP Prov:CRAOL VALLE DO 06/14/17 Follow-up Plan CONDITION Patient Condition: Stable HOME CARE INSTRUCTIONS: Diet Instructions: Low Fat /CholesterolSpecial Diet: 1800 FOLLOW UP/APPOINTMENTS Follow-up Plan 1. Follow up with your primary care provider in one week Primary Care Provider José Miguel Gee MD Time spent on discharge: > 30 minutes JENARO MELLO Jul 10, 2017 16:25
== END 2017-07-04 16:05 | disposition home health service (06) | DRG 882 ==
LOC: E/R 23:52 → TEL 07-01 02:18 → MS2 07-03 21:20
PROVIDERS: ADMIT Family Medicine; ATTEND Family Medicine
PROC: 4A10X4Z Monitoring of Central Nervous Electrical Activity, External Approach (ICD-10-PCS; principal; 2017-07-02)
DX: F45.9 Somatoform disorder, unspecified (principal); G43.409 Hemiplegic migraine, not intractable, without status migrainosus; E78.5 Hyperlipidemia, unspecified; F41.9 Anxiety disorder, unspecified; K21.9 Gastro-esophageal reflux disease without esophagitis; R73.03 Prediabetes; R53.1 Weakness; M54.30 Sciatica, unspecified side
CPT/HCPCS: 36415; 70450; 70553; 71010; 73560; 80048; 80061; 80076; 80307; 81001; 82550; 82553; 82962; 83036; 83735; 84100; 84439; 84443; 84484; 84703; 85025; 85610; 85730; 93005; 93306; 93880; 95819; 96374; 97161; 97530; J1885; J2060

== ENCOUNTER 2017-10-18 21:22 | Emergency (ER) | payer OTHER ==
[~2017-10-18] VITALS: Ht 162.6 cm; Wt 71.2 kg
[~2017-10-18 21:22] MED LIST changes: +ASPI-664 PO; +ATOR20TA65 PO; +BUTA1CAP38 PO; -CEPH-443 PO; -IBUP-727 PO; +TRAM50TA2 PO
[2017-10-18 21:37] VITALS: Ht 162.6 cm; Wt 71.2 kg
--- NOTE | 2017-10-19 01:12 | ERD ---
ER Documentation Chief Complaint Chief Complaint dizziness x 6 days, nausea, vomiting today, left shoulder pain HPI 47-year-old female presents emergency department with dizziness for about 8 days. Also complains of nausea and nonbilious and nonbloody emesis today. She also added a chest left shoulder pain. Reports that she feels like her surrounding is moving. Denies headache, neck pain, throat pain, difficulty swallowing, difficulty breathing when lying flat, abdominal pain, urinary symptoms, or possibility being , last menstrual period: 2012. A0. ROS All systems reviewed and are negative except as per history of present illness. Medications Home Meds Active Scripts Cephalexin* (Keflex*) 500 Mg Capsule, 500 MG PO QID for 5 Days, CAP Prov:KLARISSAILAANDREASMARIA EUGENIAMIGUEL Kenny 10/19/17 Meclizine Hcl* (Antivert*) 12.5 Mg Tab, 12.5 MG PO Q6H Y for DIZZINESS, #20 TAB Prov:ZACHARIAHMARIA EUGENIAMIGUEL Kenny 10/19/17 Diphenhydramine Hcl* (Benadryl*) 25 Mg Cap, 25 MG PO Q8, #30 CAP Prov:KLARISSAJWMARIA EUGENIAMIGUEL Efraín 10/19/17 Metoclopramide* (Reglan*) 10 Mg Tablet, 10 MG PO Q6 Y for NAUSEA AND/OR VOMITING , #20 TAB Prov:KLARISSAJWMARIA EUGENIAMIGUEL Kenny 10/19/17 Tramadol HCl (Tramadol HCl) 50 Mg Tablet, 50 MG PO Q6H Y for PAIN, #25 TAB Prov:JENARO MELLO 07/04/17 Qqeyawbqtb-Ewvhtsahfsusr-Vvvctzia* (Fioricet*) 50-300-40 Mg Capsule, 1 CAP PO Q4H Y for cephalgia, #20 CAP Prov:JENARO MELLO 07/03/17 Atorvastatin Calcium (Atorvastatin Calcium) 20 Mg Tablet, 20 MG PO HS for 30 Days, TAB Prov:JENARO MELLO 07/03/17 Aspirin* (Aspirin* EC) 81 Mg Tablet.dr, 81 MG PO DAILY for 30 Days Prov:JENARO MELLO 07/03/17 Ondansetron (Zofran Odt) 4 Mg Tab.rapdis, 4 MG PO Q6, #20 Prov:JENARO MELLO 07/03/17 Ranitidine Hcl* (Zantac*) 150 Mg Tablet, 150 MG PO BID Y for EPIGASTRIC PAIN, # 30 TAB Prov:CAROL VALLE DO 06/14/17 Ibuprofen* (Ibuprofen*) 600 Mg Tablet, 600 MG PO Q6H Y for PA, #30 TAB Prov:PHYLLIS MUELLERYesenia DE LEÓN 08/19/15 Allergies Allergies: Coded Allergies: No Known Allergy (Unverified , 12/27/12) PMhx/Soc History of Surgery: Yes ( (2004), Gallbladder (2011)) Anesthesia Reaction: No Hx Neurological Disorder: No Hx Respiratory Disorders: No Hx Cardiac Disorders: No Hx Psychiatric Problems: No Hx Miscellaneous Medical Probl: Yes (ARTHRITIS, (+) TB 2007) Hx Alcohol Use: Yes (One shot 2014) Hx Substance Use: No Hx Tobacco Use: No Smoking Status: Never smoker Physical Exam Vitals Vital Signs Date Time Temp Pulse Resp B/P Pulse Ox O2 Delivery O2 Flow Rate FiO2 10/19/17 03:35 97.1 60 18 122/73 95 Room Air 10/18/17 21:37 98.6 83 20 157/82 98 Physical Exam Const: In mild distress due to her dizziness. Head: Atraumatic Eyes: Normal Conjunctiva PERRLA. No pain on eye movement.. ENT: Normal External Ears, Nose and Mouth. Neck: Full range of motion..~ No meningismus. No neck stiffness. Resp: Clear to auscultation bilaterally Cardio: Regular rate and rhythm, no murmurs Abd: Soft, non tender, non distended. Normal bowel sounds Skin: No petechiae or rashes Back: No midline or flank tenderness Ext: No cyanosis, or edema Neur: Awake and alert. No facial droop. No unilateral weakness. Romberg test is negative. Psych: Normal Mood and Affect Result Diagram: 10/19/17 0140 10/19/17 0140 Results 24 hrs Laboratory Tests Test 10/19/17 01:10 10/19/17 01:40 Urine Color YELLOW Urine Clarity CLEAR Urine pH 5.0 Urine Specific [place] 1.018 Urine Ketones NEGATIVEmg/dL Urine Nitrite NEGATIVEmg/dL Urine Bilirubin NEGATIVEmg/dL Urine Urobilinogen NEGATIVEmg/dL Urine Leukocyte Esterase TRACELeu/ul Urine Microscopic RBC 1/HPF Urine Microscopic WBC 2/HPF Urine Mucus FEW/HPF Urine Hemoglobin NEGATIVEmg/dL Urine Glucose NEGATIVEmg/dL Urine Total Protein NEGATIVEmg/dl White Blood Count 7.010^3/ul Red Blood Count 4.3910^6/ul Hemoglobin 13.4g/dl Hematocrit 39.4% Mean Corpuscular Volume 89.7fl Mean Corpuscular Hemoglobin 30.5pg Mean Corpuscular Hemoglobin Concent 34.0g/dl Red Cell Distribution Width 11.6% Platelet Count 23536^3/UL Mean Platelet Volume 10.4fl Neutrophils % 47.2% Lymphocytes % 39.2% Monocytes % 8.7% Eosinophils % 3.7% Basophils % 0.6% Nucleated Red Blood Cells % 0.0/100WBC Neutrophils # 3.310^3/ul Lymphocytes # 2.810^3/ul Monocytes # 0.610^3/ul Eosinophils # 0.310^3/ul Basophils # 0.010^3/ul Nucleated Red Blood Cells # 0.010^3/ul Prothrombin Time 13.0Sec Prothrombin Time Ratio 1.0 INR International Normalized Ratio 0.97 Activated Partial Thromboplast Time 32.3Sec Sodium Level 142mmol/L Potassium Level 4.0mmol/L Chloride Level 106mmol/L Carbon Dioxide Level 25mmol/L Anion Gap 15 Blood Urea Nitrogen 19mg/dl Creatinine 0.64mg/dl Glucose Level 98mg/dl Calcium Level 9.3mg/dl Total Bilirubin 0.4mg/dl Direct Bilirubin 0.00mg/dl Indirect Bilirubin 0.4mg/dl Aspartate Amino Transf (AST/SGOT) 26IU/L Alanine Aminotransferase (ALT/SGPT) 44IU/L Alkaline Phosphatase 110IU/L Troponin I < 0.012ng/ml Total Protein 7.2g/dl Albumin 4.2g/dl Globulin 3.00g/dl Albumin/Globulin Ratio 1.40 Current Medications Medications (Trade) Dose Ordered Sig/Reanna Route PRN Reason Start Time Stop Time Status Last Admin Dose Admin Metoclopramide HCl (Reglan) 10 mg ONCE ONCE IV 10/19/17 01:30 10/19/17 01:31 DC 10/19/17 02:04 Diphenhydramine HCl 25 mg 25 mg ONCE ONCE IV 10/19/17 01:30 10/19/17 01:31 DC 10/19/17 02:04 Sodium Chloride (NS) 1,000 ml @ 1,000 mls/hr Q1H ONCE IV 10/19/17 01:30 10/19/17 02:29 DC 10/19/17 02:04 Meclizine HCl (Antivert) 25 mg ONCE ONCE PO 10/19/17 02:30 10/19/17 02:31 DC 10/19/17 02:35 Procedures/MDM EKG: Sinus bradycardia with a ventricular rate of 59 bpm. No STEMI. Read by supervising physician, Dr. Tiana Rivera. Blood works: Negative. Urinalysis: Leukocytes on urine. Treatment: IV insertion. Normal saline 1 L IV bolus. Reglan IV. Benadryl IV. Reevaluation: Denies headache, dizziness, chest pain. Stated that she feels much better this time. No episode of emesis here in the emergency department. No abdominal tenderness. Negative on Rovsing sign. Negative [place] sign (he will check test). Negative and psoas sign. Negative and Romberg test. No unilateral weakness. I have low suspicion for stroke, cardiac process due to patient's response to treatment and diagnostic test results. Final diagnosis: Vertigo. Prescription: Reglan. Benadryl. Zofran. Antivert. Follow-up with PCP in the next 3-4 days. Come back in the emergency department for any new symptoms or any worsening of symptoms. All questions and concerns were answered. Patient and family member verbalized understanding and agreed with plan of care. Hemodynamically stable on discharge. Departure Diagnosis: Primary Impression: Vertigo Additional Impression: UTI (urinary tract infection) Condition: Stable Additional Instructions: Follow-up with PCP in the next 3-4 days. Come back in the emergency department for any new symptoms or any worsening of symptoms. All questions and concerns were answered. Patient and family member verbalized understanding and agreed with plan of care. REUBEN SONI Oct 19, 2017 01:12
[2017-10-19] MEDS ORDERED: METOCLOPRAMIDE 10 MG INJ IV ONE (01:30)
[2017-10-19] MEDS ORDERED: SOD CHLORIDE 0.9% 1,000 ML IV ONE (01:30)
[2017-10-19] MEDS ORDERED: DIPHENHYDRAMINE 50 MG INJ IV ONE (01:30)
[2017-10-19 02:12] LABS: BASOPHILS % 0.6 % (0.0-2.0); EOSINOPHILS # 0.3 10^3/ul (0.0-0.5); EOSINOPHILS % 3.7 % (0.0-7.0); HEMATOCRIT 39.4 % (37.0-47.0); HEMOGLOBIN 13.4 g/dl (12.0-16.0); LYMPHOCYTES # 2.8 10^3/ul (0.8-2.9); LYMPHOCYTES % 39.2 % (15.0-51.0); MEAN CORPUSCULAR HEMOGLOBIN 30.5 pg (29.0-33.0); MEAN CORPUSCULAR VOLUME 89.7 fl (82.0-101.0); MEAN PLATELET VOLUME 10.4 fl (7.4-10.4); MONOCYTE # 0.6 10^3/ul (0.3-0.9); MONOCYTES % 8.7 % (0.0-11.0); NEUTROPHIL # 3.3 10^3/ul (1.6-7.5); NEUTROPHILS % 47.2 % (39.0-77.0); PLATELET COUNT 272 10^3/UL (140-415); RED BLOOD COUNT 4.39 10^6/ul (4.20-5.40); RED CELL DISTRIBUTION WIDTH 11.6 % (11.5-14.5)
[2017-10-19] MEDS ORDERED: MECLIZINE 12.5 MG TAB PO ONE (02:30)
[2017-10-19 02:35] LABS: INR 0.97
[2017-10-19 02:36] LABS: PARTIAL THROMBOPLASTIN TIME 32.3 Sec (25.0-35.0)
[2017-10-19 02:41] LABS: ALANINE AMINOTRANSFERASE 44 IU/L (13-69); ALBUMIN 4.2 g/dl (3.3-4.9); ALKALINE PHOSPHATASE 110 IU/L (42-121); ANION GAP 15 (8-16); ASPARTATE AMINO TRANSFERASE 26 IU/L (15-46); BILIRUBIN,INDIRECT 0.4 mg/dl (0-1.1); BILIRUBIN,TOTAL 0.4 mg/dl (0.2-1.3); BLOOD UREA NITROGEN 19 mg/dl (7-20); CALCIUM 9.3 mg/dl (8.4-10.2); CARBON DIOXIDE 25 mmol/L (21-31); CHLORIDE 106 mmol/L (97-110); CREATININE 0.64 mg/dl (0.44-1.00); GLUCOSE 98 mg/dl (70-220); SODIUM 142 mmol/L (135-144); TOTAL PROTEIN 7.2 g/dl (6.1-8.1)
[2017-10-19 02:51] LABS: TROPONIN-I < 0.012 ng/ml (0.00-0.12)
[2017-10-19 02:58] LABS: ADD UMIC YES; UR ASCORBIC ACID NEGATIVE (NEGATIVE); UR BILIRUBIN (Dip) NEGATIVE (NEGATIVE); UR BLOOD (Dip) NEGATIVE (NEGATIVE); UR CLARITY CLEAR (CLEAR); UR COLOR YELLOW (YELLOW); UR GLUCOSE (Dip) NEGATIVE (NEGATIVE); UR KETONES (Dip) NEGATIVE (NEGATIVE); UR LEUKOCYTE ESTERASE (Dip) TRACE Leu/ul (NEGATIVE); UR MUCUS FEW /HPF (NONE SEEN); UR NITRITE (Dip) NEGATIVE (NEGATIVE); UR RBC 1 /HPF (0-5); UR SPECIFIC GRAVITY (Dip) 1.018 (1.003-1.030); UR TOTAL PROTEIN (Dip) NEGATIVE (NEGATIVE); UR UROBILINOGEN (Dip) NEGATIVE (NEGATIVE)
[2017-10-19] MEDS ORDERED: METO10TA92 PO (03:29)
[2017-10-19] MEDS ORDERED: BEN25 PO (03:30)
[2017-10-19] MEDS ORDERED: MECL12.574 PO (03:30)
[2017-10-19] MEDS ORDERED: CEPH-443 PO (03:33)
[2017-10-19 03:35] VITALS: BP 122/73; PULSE 60; RESP 18; TEMP 97.1
== END 2017-10-19 03:47 | disposition home or self-care (01) ==
LOC: FTE 21:22
DX: N39.0 Urinary tract infection, site not specified (principal); R10.9 Unspecified abdominal pain; Z79.82 Long term (current) use of aspirin
CPT/HCPCS: 80053; 81001; 84484; 85025; 85610; 85730; 93005; 96361; 96374; 96375; J1200; J2765; J7030; Z7502; Z7610

== ENCOUNTER 2017-11-25 09:48 | Emergency (ER) | END 2017-11-25 13:34 | disposition home or self-care (01) ==

== ENCOUNTER 2018-06-19 00:45 | Emergency (ER) | END 2018-06-19 07:35 | disposition home or self-care (01) ==

== ENCOUNTER 2018-11-06 00:35 | Emergency (ER) | payer OTHER ==
[~2018-11-06] VITALS: Ht 152.4 cm; Wt 72.8 kg
[~2018-11-06 00:35] MED LIST changes: -ASPI-664 PO; -ATOR20TA65 PO; -BUTA1CAP38 PO; -ONDA4TAB11 PO; +ONDA4TAB14 PO; -RANI150T9 PO; -TRAM50TA2 PO
[2018-11-06 00:37] VITALS: Ht 152.4 cm; Wt 72.8 kg
[2018-11-06] MEDS ORDERED: SOD CHLORIDE 0.9% 1,000 ML IV STA (01:05)
[2018-11-06] MEDS ORDERED: morphine 4 MG/ML VIAL IV STA (01:05)
[2018-11-06] MEDS ORDERED: ONDANSETRON 4 MG INJ IV STA (01:05)
--- NOTE | 2018-11-06 01:29 | ERD ---
ER Documentation Chief Complaint Chief Complaint lower back pain/L arm pain x1 week. no injury HPI 48-year-old female presents here to emergency department for complaints of right flank pain right lower back pain that started 1 week ago, complains of pain throbbing pain, 6/10 scale, worse upon movement, patient also has been compla ining of dysuria and burning upon urination 4/10 scale. Denies any fever or chills, denies any nausea or vomiting. Patient denies any diarrhea or constipation. ROS All systems reviewed and are negative except as per history of present illness. Medications Home Meds Active Scripts Ondansetron (Ondansetron Odt) 4 Mg Tab.rapdis, 4 MG PO Q6H PRN for NAUSEA AND/OR VOMITING, #10 TAB Prov:CARISSA BRICEÑO. 06/19/18 Ibuprofen* (Motrin*) 600 Mg Tab, 600 MG PO Q6, #30 TAB Prov:CARISSA BRICEÑO S. 06/19/18 Allergies Allergies: Coded Allergies: No Known Allergy (Unverified , 06/19/18) PMhx/Soc History of Surgery: Yes ( (2004), Gallbladder (2011)) Anesthesia Reaction: No Hx Neurological Disorder: No Hx Respiratory Disorders: No Hx Cardiac Disorders: No Hx Psychiatric Problems: No Hx Miscellaneous Medical Probl: Yes (ARTHRITIS, (+) TB 2007) Hx Alcohol Use: No Hx Substance Use: No Hx Tobacco Use: No Smoking Status: Never smoker FmHx Family History: No diabetes, No coronary disease, No other Physical Exam Vitals Vital Signs Date Temp Pulse Resp B/P (MAP) Pulse Ox O2 O2 Flow FiO2 Time Delivery Rate 11/06/18 98.3 85 16 148/72 99 00:37 (97) Physical Exam GENERAL: The patient is well developed and appropriate for usual state of health, in no apparent distress. CHEST: Clear to auscultation bilaterally. There are no rales, wheezes or rhonchi. HEART: Regular rate and rhythm. No murmurs, clicks, rubs or gallops. No S3 or S4. ABDOMEN: Soft, nontender and nondistended. Good bowel sounds. No rebound or guarding. No gross peritonitis. No gross organomegaly or masses. No Sutherland sign or McBurney point tenderness. BACK: No midline or flank tenderness. EXTREMITIES: Equal pulses bilaterally. There is no peripheral clubbing, cyanosis or edema. No focal swelling or erythema. Full range of motion. Grossly neurovascularly intact. NEURO: Alert and oriented. Cranial nerves 2-12 intact. Motor strength in all 4 extremities with 5/5 strength. Sensation grossly intact. Normal speech and gait. SKIN: There is no apparent rash or petechia. The skin is warm and dry. HEMATOLOGIC AND LYMPHATIC: There is no evidence of excessive bruising or lymphedema. No gross cervical, axillary, or inguinal lymphadenopathy. Result Diagram: 11/06/18 0122 11/06/18 0119 Results 24 hrs Laboratory Tests Test 11/06/18 01:19 11/06/18 01:22 11/06/18 01:38 11/06/18 01:41 Sodium Level 143 mmol/L Potassium Level 4.2 mmol/L Chloride Level 101 mmol/L Carbon Dioxide 31 mmol/L Level Anion Gap 11 Blood Urea 20 mg/dl Nitrogen Creatinine 0.97 mg/dl Est Glomerular > 60 mL/min Filtrat Rate mL/min Glucose Level 167 mg/dl Calcium Level 9.9 mg/dl Total Bilirubin 0.0 mg/dl Direct Bilirubin 0.00 mg/dl Indirect Bilirubin 0.0 mg/dl Aspartate Amino 24 IU/L Transf (AST/SGOT) Alanine 29 IU/L Aminotransferase ( ALT/SGPT) Alkaline 125 IU/L Phosphatase Total Protein 7.2 g/dl Albumin 4.4 g/dl Globulin 2.80 g/dl Albumin/Globulin 1.57 Ratio Lipase 161 U/L White Blood Count 8.5 10^3/ul Red Blood Count 4.37 10^6/ul Hemoglobin 13.5 g/dl Hematocrit 39.9 % Mean Corpuscular 91.3 fl Volume Mean Corpuscular 30.9 pg Hemoglobin Mean Corpuscular 33.8 g/dl Hemoglobin Concent Red Cell 11.3 % Distribution Width Platelet Count 314 10^3/UL Mean Platelet 9.9 fl Volume Immature 0.200 % Granulocytes % Neutrophils % 58.4 % Lymphocytes % 30.8 % Monocytes % 7.9 % Eosinophils % 2.0 % Basophils % 0.7 % Nucleated Red 0.0 /100WBC Blood Cells % Immature 0.020 10^3/ul Granulocytes # Neutrophils # 5.0 10^3/ul Lymphocytes # 2.6 10^3/ul Monocytes # 0.7 10^3/ul Eosinophils # 0.2 10^3/ul Basophils # 0.1 10^3/ul Nucleated Red 0.0 10^3/ul Blood Cells # Urine Color YELLOW Urine Clarity SLIGHTLY CLOUDY Urine pH 7.0 Urine Specific 1.016 [place] Urine Ketones NEGATIVE mg/dL Urine Nitrite NEGATIVE mg/dL Urine Bilirubin NEGATIVE mg/dL Urine Urobilinogen NEGATIVE mg/dL Urine Leukocyte NEGATIVE Frankie/ul Esterase Urine Microscopic 0 /HPF RBC Urine Microscopic 2 /HPF WBC Urine Bacteria FEW /HPF Urine Hemoglobin NEGATIVE mg/dL Urine Glucose NEGATIVE mg/dL Urine Total NEGATIVE mg/dl Protein POC Beta HCG, NEGATIVE Qualitative Current Medications Medications Dose Sig/Reanna Start Time Status Last (Trade) Ordered Route PRN Stop Time Admin Dose Reason Admin Sodium 1,000 ml @ Q1H STAT 11/06/18 DC 11/06/18 Chloride 1,000 mls/hr IV 01:05 11/06/18 01:33 02:04 Morphine 4 mg ONCE STAT 11/06/18 DC 11/06/18 Sulfate IV 01:05 11/06/18 01:32 (morphine) 01:06 Ondansetron 4 mg ONCE STAT 11/06/18 DC 11/06/18 HCl (Zofran IV 01:05 11/06/18 01:33 Inj) 01:06 Morphine 2 mg ONCE STAT 11/06/18 DC Sulfate IV 02:33 11/06/18 (morphine) 02:59 10 mg ONCE ONCE 11/06/18 DC 11/06/18 Cyclobenzapri PO 03:00 11/06/18 02:57 ne HCl 03:01 (Flexeril) Ketorolac 30 mg ONCE STAT 11/06/18 DC Tromethamine IV 02:58 11/06/18 (Toradol) 02:59 Patient was given medication for pain here in emergency department, after treatment, patient verbalized feeling much better. Patient's pain is improved. Patient was given Zofran here in the emergency department. After treatment, patient was able to tolerate po fluids here in the emergency department without any vomiting. There is no signs and symptoms of dehydration. Normal saline IV bolus was given here in emergency department for rehydration, patient tolerated IV fluids. PROCEDURE: CT Abdomen and Pelvis Without Intravenous Contrast CLINICAL INDICATION: Abdominal Pain TECHNIQUE: Axial computed tomography images of the abdomen and pelvis without intravenous contrast. Sagittal and coronal reformatted images were created and reviewed. CTDIvol (mGy) = <16.35 mGy>; total DLP (mGy-cm) = <950.27 mGy.cm> This CT exam was performed using one or more of the following dose reduction techniques: automated exposure control, adjustment of the mA and/or kV according to patient size, and/or use of iterative reconstruction technique. DICOM images are available. COMPARISON: 11/20/2013 FINDINGS: LUNG BASES: 2 mm right lower lobe lung nodule is unchanged compared with study from 2009. ABDOMEN: LIVER: Unremarkable GALLBLADDER AND BILE DUCTS: Dilated common bile duct, 11 mm. This is increased compared with prior. No visible choledocholithiasis. If indicated, MRCP could be performed. Clips are seen from prior cholecystectomy. PANCREAS: Unremarkable No ductal dilation. SPLEEN: Unremarkable No splenomegaly. ADRENALS: Unremarkable No mass. KIDNEYS AND URETERS: Unremarkable No hydronephrosis or renal calculi are seen. STOMACH AND BOWEL: No evidence for small bowel obstruction, free air, or abscess. Few colonic diverticula. No evidence for diverticulitis. The stomach is distended with fluid and debris. PELVIS: APPENDIX: Normal appendix. BLADDER: Unremarkable No stones. REPRODUCTIVE: Unremarkable. ABDOMEN and PELVIS: INTRAPERITONEAL SPACE: See above. BONES/JOINTS: Mild degenerative change of the spine. Small right femoral head bone island. SOFT TISSUES: Small fat-containing umbilical hernia. VASCULATURE: Unremarkable No abdominal aortic aneurysm. LYMPH NODES: Unremarkable No enlarged lymph nodes. OTHER FINDINGS: IMPRESSION: 1. Dilated common bile duct, 11 mm. This is increased compared with prior. No visible choledocholithiasis. If indicated, MRCP could be performed. 2. No evidence for small bowel obstruction, free air, or abscess. Unremarkable uterus and adnexa. 3. Few colonic diverticula. No evidence for diverticulitis. Moderate stool burden. RPTAT: [facility] Physician Naveed Date Time Electronically viewed and signed by Mirtha Avila Physician on 11/06/2018 02:21 LE/ CC: PHYLLIS MUELLER NP [id number] Discussed case with attending physician, Dr. Briceño, considering patient pain is more lower than the upper quadrant and upper back, and patient's lipase liver function tests and bilirubin is normal, low suspicion for acute cholecystitis, most likely musculoskeletal pain Procedures/MDM Medical Decision Making: Symptoms most likely is consistent with back strain, muscle spasms noted in the back. Liver function tests normal, lipase normal, low suspicion for acute cholecystitis. There is low suspicion for abdominal emergencies at this time. Patients abdominal exam is normal at this time. Patients radiology exam does not show any abdominal emergencies at this time. There is low suspicion for appendicitis, cholecystitis, abdominal aortic aneurysms or peritonitis at this time. There is low suspicion for sepsis. Patient appears well and is hemodynamically stable. Disposition: Home. Condition: Stable Prescription [place] Flexeril ibuprofen Instructions: Patient is advised to take medications as prescribed. Patient is advised to rest, increase fluid intake and do brat diet for next 1-2 days and progress as tolerated. Patient is advised that if symptoms are worse, severe abdominal pain, uncontrolled vomiting, high fever, severe flank pain, worst signs and symptoms, to return to the emergency department immediately. Otherwise, patient can follow up with primary care doctor in 5-7 days. Disclaimer: Inadvertent spelling and grammatical errors are likely due to EHR/dictation software use and do not reflect on the overall quality of patient care. Also, please note that the electronic time recorded on this note does not necessarily reflect the actual time of the patient encounter. Departure Diagnosis: Primary Impression: Back strain Encounter type: initial encounter Qualified Codes: S39.012A - Strain of muscle, fascia and tendon of lower back, initial encounter Condition: Stable Patient Instructions: Back Sprain/Strain Additional Instructions: Patient is advised to take medications as prescribed. Patient is advised to rest, increase fluid intake and do brat diet for next 1-2 days and progress as tolerated. Patient is advised that if symptoms are worse, severe abdominal pain, uncontrolled vomiting, high fever, severe flank pain, worst signs and symptoms, to return to the emergency department immediately. Otherwise, patient can follow up with primary care doctor in 5-7 days. PHYLLIS MUELLER NP Nov 06, 2018 01:29
[2018-11-06] MEDS ORDERED: morphine 2 MG INJ IV STA (02:33)
[2018-11-06] MEDS ORDERED: KETOROLAC 30 MG INJ IV STA (02:58)
[2018-11-06] MEDS ORDERED: CYCLOBENZAPRINE 10 MG TAB PO ONE (03:00)
[2018-11-06] MEDS ORDERED: CYCL10TA7 PO (03:09)
[2018-11-06] MEDS ORDERED: HYDR-4011 PO (03:09)
[2018-11-06] MEDS ORDERED: IBUP-1542 PO (03:10)
[2018-11-06 03:20] VITALS: BP 99/54; PULSE 78; RESP 18
== END 2018-11-06 04:06 | disposition home or self-care (01) ==
LOC: FTE 00:35
DX: S39.012A Strain of muscle, fascia and tendon of lower back, initial encounter (principal); X58.XXXA Exposure to other specified factors, initial encounter; Y92.9 Unspecified place or not applicable
CPT/HCPCS: 36415; 74176; 80053; 81001; 81025; 83690; 85025; 96361; 96374; 96375; J1885; J2270; J2405; J7030; Z7502; Z7610; 81003

== ENCOUNTER 2019-01-30 19:53 | Emergency (ER) | payer OTHER ==
[~2019-01-30] VITALS: Ht 152.4 cm; Wt 70.7 kg
[~2019-01-30 19:53] MED LIST changes: +CYCL10TA7 PO; +HYDR-4011 PO
[2019-01-30 20:46] VITALS: Ht 152.4 cm; Wt 70.7 kg
[2019-01-31] MEDS ORDERED: KETOROLAC 60 MG INJ IM STA (00:56)
[2019-01-31] MEDS ORDERED: DEXAMETHASONE 10 MG/ML 1 ML INJ IM ONE (01:00)
[2019-01-31] MEDS ORDERED: ERYTHROMYCIN 1 GM OPH OINT LEFT EYE ONE (01:00)
[2019-01-31] MEDS ORDERED: METHYLPREDNISOLONE ACET 80 MG/ML 1 ML IU ONE (01:00)
[2019-01-31] MEDS ORDERED: AMOXICILLIN/CLAV 875 MG TAB PO ONE (01:00)
[2019-01-31] MEDS ORDERED: METHYLPREDNISOLONE ACET 80 MG/ML 1 ML IM ONE (02:00)
[2019-01-31] MEDS ORDERED: ERYT1OIN6 LEFT EYE (02:25)
[2019-01-31] MEDS ORDERED: CETI10TA34 PO (02:25)
[2019-01-31] MEDS ORDERED: AMOX1TAB10 PO (02:25)
[2019-01-31 02:38] VITALS: BP 133/88; PULSE 66; RESP 16
--- NOTE | 2019-01-31 03:38 | ERD ---
ER Documentation Chief Complaint Chief Complaint left eye pain/dicharge x 1 month HPI History of Present Illness: Patient coming in today with complaint of left eye discharge for approximately 1 month patient reporting eye matting in the morning, and with Eyelid discomfort. Associated symptoms include headache, ear pain. At home pharmacological/nonpharmacological treatment for symptoms: denies Denies social concerns; Denies recent foreign travel ROS All systems reviewed and are negative except as per history of present illness. Medications Home Meds Active Scripts Cetirizine Hcl* (Cetirizine Hcl*) 10 Mg Tab.chew, 10 MG PO DAILY for ear pain/allergies, #30 TAB Prov:EZEKIEL SANCHEZ NP 01/31/19 Amoxicillin/Potassium Clav (Amox-Clav 875-125 mg Tablet) 875-125 mg Tab, 1 TAB PO BID for sinusitis for 10 Days, #20 TAB Prov:EZEKIEL SANCHEZ NP 01/31/19 Erythromycin Base (Erythromycin) 1 Gm Oint...g., 1 APPLIC LEFT EYE QID for eye infection for 7 Days Prov:EZEKIEL SANCHEZ NP 01/31/19 Ibuprofen* (Motrin*) 600 Mg Tab, 600 MG PO Q6H PRN for PAIN AND OR ELEVATED TEMP, #30 TAB Prov:PHYLLIS MUELLER LAST PULLER 11/06/18 Hydrocodone/Acetaminophen ([place] 5-325 Tablet) 1 Each Tablet, 1 TAB PO Q6H PRN for SEVERE PAIN LEVEL 7-10, #7 TAB Prov:PHYLLIS MUELLER LAST PULLER 11/06/18 Cyclobenzaprine Hcl* (Cyclobenzaprine Hcl*) 10 Mg Tablet, 10 MG PO TID, #15 TAB Prov:PHYLLIS MUELLER LAST PULLER 11/06/18 Ondansetron (Ondansetron Odt) 4 Mg Tab.rapdis, 4 MG PO Q6H PRN for NAUSEA AND/OR VOMITING, #10 TAB Prov:CARISSA BRICEÑO 06/19/18 Ibuprofen* (Motrin*) 600 Mg Tab, 600 MG PO Q6, #30 TAB Prov:CARISSA BRICEÑO 06/19/18 Allergies Allergies: Coded Allergies: No Known Allergy (Unverified , 06/19/18) PMhx/Soc History of Surgery: Yes ( (2004), Gallbladder (2011)) Anesthesia Reaction: No Hx Neurological Disorder: No Hx Respiratory Disorders: No Hx Cardiac Disorders: No Hx Psychiatric Problems: No Hx Miscellaneous Medical Probl: Yes (ARTHRITIS, (+) TB 2007) Hx Alcohol Use: No Hx Substance Use: No Hx Tobacco Use: No Smoking Status: Never smoker FmHx Family History: diabetes Physical Exam Vitals Vital Signs Date Temp Pulse Resp B/P (MAP) Pulse Ox O2 O2 Flow FiO2 Time Delivery Rate 01/31/19 97.8 66 16 133/88 100 Room Air 02:38 (103) 01/30/19 98.3 69 18 129/67 99 20:46 (87) Physical Exam Const: No acute distress Head: Atraumatic, tenderness to palpation for frontal maxillary sinuses Eyes: Normal Conjunctiva, no discharge noted to bilateral eyes. ENT: Normal External Ears, Nose and Mouth. Neck: Full range of motion. No meningismus.Positive cervical adenopathy. Resp: Clear to auscultation bilaterally Cardio: Regular rate and rhythm, no murmurs Abd: Soft, non tender, non distended. Normal bowel sounds Skin: No petechiae or rashes Back: No midline or flank tenderness Ext: No cyanosis, or edema Neur: Awake and alert Psych: Normal Mood and Affect Results 24 hrs Laboratory Tests Test 01/31/19 01:26 POC Beta HCG, Qualitative NEGATIVE Current Medications Medications Dose Sig/Reanna Start Time Status Last (Trade) Ordered Route PRN Stop Time Admin Dose Reason Admin 80 mg ONCE ONCE 01/31/19 DC Methylprednis IU 01:00 olone 01/31/19 01:50 Acetate (Depo-Medrol 80 Mg/ml 1 ml) 8 mg ONCE ONCE 01/31/19 DC 01/31/19 Dexamethasone IM 01:00 01:32 (Decadron) 01/31/19 01:01 Ketorolac 60 mg ONCE STAT 01/31/19 DC 01/31/19 Tromethamine IM 00:56 01:33 (Toradol) 01/31/19 01:00 1 applic ONCE ONCE 01/31/19 DC 01/31/19 Erythromycin LEFT EYE 01:00 01:43 01/31/19 01:01 (Erythromycin Oph Oint) 875 mg ONCE ONCE 01/31/19 DC 01/31/19 Amoxicillin/ PO 01:00 01:43 Clavulanate 01/31/19 01:01 Potassium (Augmentin) 80 mg ONCE ONCE 01/31/19 DC 01/31/19 Methylprednis IM 02:00 01:56 olone 01/31/19 02:01 Acetate (Depo-Medrol 80 Mg/ml 1 ml) Procedures/MDM ED course includes a thorough examination and history. ED course includes visual acuity testing. ED course includes medications; methylprednisolone and dexamethasone for swelling and inflammation, ketorolac for pain and inflammation, or erythromycin for conjunctivitis, Augmentin for sinusitis has been present for over 10 days.. Low suspicion for life-threatening medical emergency or infectious emergency that requires hospitalization. Patient afebrile, hemodynamically stable. no Concern for mastoiditis or neurological emergency. Visual acuity equal bilaterally. Otherwise healthy patient presenting with constellation of symptoms likely representing uncomplicated sinusitis and bacterial conjunctivitis as characterized by history, physical exam findings. No respiratory distress, otherwise relatively well appearing and nontoxic. Patient educated on diagnoses, prescriptions, follow-up care, return precautions. Strict return precautions given for worsening condition; questions answered discharge. Disposition for discharge with followup in 2 days with PCP/clinic. Departure Diagnosis: Primary Impression: Sinusitis Sinusitis location: unspecified location Chronicity: acute Recurrence: not specified as recurrent Qualified Codes: J01.90 - Acute sinusitis, unspecified Additional Impression: Conjunctivitis, bacterial Condition: Stable Patient Instructions: Conjunctivitis Caused by Infection, Sinusitis, Abx Tx Referrals: [facility] Usted se cavazos hecho un examen mdico de control que le indica que no est en zenaida condicin que requiera tratamiento urgente en el Departamento de Emergencia. Un estudio ms profundo y el tratamiento de burden condicin pueden esperar sin ningn riesgo hasta que usted sea atendida/o en el consultorio de burden mdico o zenaida clnica. Es responsabilidad suya arreglar zenaida ana para el seguimiento del leslie. MANEJO DE CONDICIONES NO URGENTES EN EL FUTURO 1) Si usted tiene un mdico de atencin primaria: Usted debera llamar a burden mdico de atencin primaria antes de venir al departamento de emergencia. Despus de las horas de consultorio, burden doctor o burden asociado/a est disponible por telfono. El mdico o enfermero de kenyon en el servicio telefnico puede asesorarle por dominick medio para atender el problema, o leslie contrario se puede programar zenaida ana. 2) Si usted no tiene un mdico de atencin primaria: Llame al mdico o clnica de referencia que aparece abajo juli las horas de consultorio para hacer zenaida ana para que le vean. CLINICAS: [facility] [phone] [facility] [phone] [facility] [phone] [address] [facility] [place] [id number] [phone] [facility]. [place] [id number] [phone] [facility]. [phone] [address] [facility]. [facility] () Usted se cavazos hecho un examen mdico de control que le indica que no est en zenaida condicin que requiera tratamiento urgente en el Departamento de Emergencia. Un estudio ms profundo y el tratamiento de burden condicin pueden esperar sin ningn riesgo hasta que usted sea atendida/o en el consultorio de burden mdico o zenaida clnica. Es responsabilidad suya arreglar zenaida ana para el seguimiento del leslie. MANEJO DE CONDICIONES NO URGENTES EN EL FUTURO 1) Si usted tiene un mdico de atencin primaria: Usted debera llamar a burden mdico de atencin primaria antes de venir al departamento de emergencia. Despus de las horas de consultorio, burden doctor o burden asociado/a est disponible por telfono. El mdico o enfermero de kenyon en el servicio telefnico puede asesorarle por dominick medio para atender el problema, o leslie contrario se puede programar zenaida ana. 2) Si usted no tiene un mdico de atencin primaria: Llame al mdico o condado institucions de referencia que aparece abajo juli las horas de consultorio para hacer zenaida ana para que le vean. SI USTED NO PUEDE PAGAR PARA CADEN UN MEDICO puede ir a: [facility] [address] [place] [address] [facility] [address] [place] [address] [facility] [address] [place] [address] [facility] [address] [place], [place] [phone] Additional Instructions: Thank you very much for allowing us to participate in your care. Your health and safety is our top priority at [facility]. Call your primary care doctor TOMORROW for an appointment during the next 2-4 days and bring all the information and medications prescribed. Have prescriptions filled and follow precisely the directions on the label. If the symptoms get worse and your provider is unavailable, return to the Emergency Department immediately. EZEKIEL SANCHEZ NP Jan 31, 2019 03:38
== END 2019-01-31 02:38 | disposition home or self-care (01) ==
LOC: FTE 19:53
DX: H10.022 Other mucopurulent conjunctivitis, left eye (principal); J01.90 Acute sinusitis, unspecified
CPT/HCPCS: 81025; 96372; J1040; J1100; J1885; Z7502; Z7610

== ENCOUNTER 2019-02-06 21:50 | Inpatient (IN) | payer OTHER ==
[~2019-02-06] VITALS: Ht 154.9 cm; Wt 70.0 kg
[~2019-02-06 21:50] MED LIST changes: +AMOX1TAB10 PO; +CETI10TA34 PO; +ERYT1OIN6 LEFT EYE
[2019-02-06 22:00] VITALS: BP 131/71; PULSE 66; RESP 20; Ht 154.9 cm; Wt 70.0 kg
[2019-02-06 22:17] VITALS: PULSE 62
[2019-02-06] MEDS ORDERED: BISACODYL (EC) 5 MG TAB PO PRN (23:30)
[2019-02-06] MEDS ORDERED: hydrALAzine 20 MG INJ IV PRN (23:30)
[2019-02-06] MEDS ORDERED: ONDANSETRON 4 MG INJ IV PRN (23:30)
[2019-02-06] MEDS ORDERED: NACL 0.9% 3 ML SYG IV SCH (23:30)
[2019-02-06] MEDS ORDERED: DOCUSATE SODIUM 100 MG CAP PO PRN (23:30)
[2019-02-06] MEDS: ACETAMINOPHEN 325 MG TAB PO PRN (23:41)
[2019-02-07] VITALS (12 sets, daily range): BP systolic 101–125; BP diastolic 60–74; PULSE 48–87; RESP 16–18
[2019-02-07] MEDS ORDERED: KETOROLAC 15 MG INJ IV PRN (00:33)
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
[2019-02-07] MEDS ORDERED: CYCLOBENZAPRINE 10 MG TAB PO ONE (01:00)
[2019-02-07] MEDS ORDERED: LORAZEPAM 2 MG INJ IV PRN (08:00)
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
--- NOTE | 2019-02-07 15:55 | RADRPT ---
Echocardiogram Report Patient Name: OMAR LOCOPatient ID: [id number] : 1970 (48y 4m)Study Date: 02/07/2019 8:38:00 AM Gender: FAccession #: [id number] Tech: [id number] Location: Ref.Physician: ALYSSA NESS Height(Cm): BSA: Weight(Kg): Quality: GoodAccount #: Procedures: Echocardiographic Report: Transthoracic echocardiogram with complete 2D, M-Mode, and doppler examination. Indications: Cerebrovascular Accident. Measurements: 2D/M Mode Doppler Measurement Value Normal Range Measurement Value Normal Range AoR Diam MM 2.7 [ 2.3 - 3.1 ] cm RAHEEM Vmax 2.0 [ 2.0 - 4.0 ] cm2 ACS MM 1.8 [ 2.7 - 3.3 ] cm AV Mean [place] 0.9 [ 70.0 - 90.0 ] cm/sec LA/Ao MM 1.1 ratio AV Mean PG 3.0 [ 2.0 - 4.0 ] mmHg LA Dimen MM 3.0 AV Peak [place] 1.3 [ 100.0 - 170.0 ] cm/sec LVIDd 2D 4.0 [ 3.8 - 5.2 ] cm AV Peak PG 6.0 [ 2.0 - 9.0 ] mmHg LVIDs 2D 2.7 [ 2.2 - 3.5 ] cm AV VTI 23.6 cm LVPWd 2D 1.1 [ 0.6 - 0.9 ] cm LVOT Peak [place] 0.9 [ 70.0 - 110.0 ] cm/sec IVSd 2D 1.1 [ 0.6 - 0.9 ] cm LVOT Peak PG 3.0 [ 2.0 - 6.0 ] mmHg IVS/LVPW 2D 1.0 ratio MV E Peak [place] 0.9 [ 60.0 - 130.0 ] cm/sec LVOT Diam 1.9 [ 2.1 - 2.5 ] cm MV A Peak [place] 0.7 [ 100.0 - 120.0 ] cm/sec LVOT Area 2.8 cm2 MV E/A 1.3 [ 0.8 - 1.5 ] ratio MV Decel Time 239 [ 104 - 258 ] msec Lat E` [place] 0.1 [ 10.0 - 15.0 ] cm/sec Med E` [place] 0.1 cm/sec MV E/A 1.3 [ 0.8 - 1.5 ] ratio TR Peak [place] 1.8 [ 100.0 - 280.0 ] cm/sec TR Peak PG 13.0 mmHg PV Peak [place] 0.6 [ 40.0 - 80.0 ] cm/sec PV Peak PG 2.0 mmHg Findings: Left Ventricle: Normal left ventricular systolic function. Normal left ventricular cavity size. Normal left ventricular wall thickness. Ejection fraction is visually estimated at 60 %. Tissue Doppler/Mitral Doppler indices are within normal limits. Right Ventricle: Normal right ventricular size. Normal right ventricular systolic function. Left Atrium: There is mild enlargement of left atrium. Right Atrium: The right atrium is normal in size. Atrial Septum: Bubble study was performed with and with out valsalva indicating no evidence of intra atrial shunt. Mitral Valve: Normal appearance and function of the mitral valve with trace physiologic regurgitation. Aortic Valve: Normal appearance of the aortic valve. No significant aortic stenosis or insufficiency. Tricuspid Valve: Normal appearance of the tricuspid valve. Unable to obtain RVSP due to minimal presence of tricuspid regurgitation. There is trace tricuspid regurgitation. Pulmonic Valve: Normal pulmonic valve appearance. There is trace pulmonic regurgitation. Pericardium: Normal pericardium with no significant pericardial effusion. Aorta: Normal aortic root. IVC: Normal size and normal respiratory collapse consistent with normal right atrial pressure. Conclusions: Normal left ventricular systolic function. Normal left ventricular cavity size. Normal left ventricular wall thickness. Ejection fraction is visually estimated at 60 %. Tissue Doppler/Mitral Doppler indices are within normal limits. No significant valvular stenosis or regurgitation seen. Bubble study was performed with and with out valsalva indicating no evidence of intra atrial shunt. Unable to obtain RVSP due to minimal presence of tricuspid regurgitation. Normal size and normal respiratory collapse consistent with normal right atrial pressure. Electronically Signed By: Tiago Fine 2019-02-07 15:54:49 PDT
[2019-02-07] MEDS: ACETAMINOPHEN 325 MG TAB PO PRN (19:00)
[2019-02-07] MEDS ORDERED: ATOR10TA65 PO (19:28)
[2019-02-07] MEDS ORDERED: TRAZ-111 PO (19:28)
[2019-02-07] MEDS ORDERED: BENZ-5 PO (19:28)
[2019-02-07] MEDS ORDERED: CHOL100062 PO (19:28)
[2019-02-07] MEDS ORDERED: LORA10TA3 PO (19:28)
[2019-02-07] MEDS ORDERED: MIRTAZAPINE 15 MG TAB PO SCH (21:00)
[2019-02-08] VITALS (9 sets, daily range): BP systolic 104–118; BP diastolic 59–72; PULSE 60–85; RESP 16–18
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
--- NOTE | 2019-02-08 14:41 | PDOCDIS ---
Discharge Instructions DIAGNOSIS Discharge Diagnosis Complex migraine versus conversion disorder CONDITION [id number] Patient Condition: [id number] Good HOME CARE INSTRUCTIONS: [id number] Diet Instructions: [id number] Regular ACTIVITY: [id number] Activity Restrictions: [id number] No Restrictions FOLLOW UP/APPOINTMENTS Follow-up Plan 1. Take all medications as prescribed. 2. See your primary care doctor in 1-2 weeks. 1. [place] todos los medicamentos segn lo prescrito. 2. Consulte a burden mdico de atencin primaria en 1-2 semanas. STACEY MCKEON MD Feb 08, 2019 14:40
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
== END 2019-02-08 18:41 | disposition home or self-care (01) | DRG 103 ==
LOC: TEL 21:50
PROVIDERS: ADMIT Internal Medicine; ATTEND Internal Medicine
DX: G43.109 Migraine with aura, not intractable, without status migrainosus (principal); G81.94 Hemiplegia, unspecified affecting left nondominant side; F33.9 Major depressive disorder, recurrent, unspecified; F43.0 Acute stress reaction; E78.5 Hyperlipidemia, unspecified; F44.9 Dissociative and conversion disorder, unspecified
CPT/HCPCS: 70553; 72156; 80053; 80061; 80307; 81001; 81003; 82306; 83036; 83735; 84100; 84443; 85025; 92610; 93306; 93880; 97110; 97116; 97161; 97165; 97530; J1885

== ENCOUNTER 2019-04-26 19:01 | Emergency (ER) | payer OTHER ==
[~2019-04-26] VITALS: Ht 157.5 cm; Wt 72.7 kg
[~2019-04-26 19:01] MED LIST changes: +ATOR10TA65 PO; +BENZ-5 PO; +CHOL100062 PO; +LORA10TA3 PO; +TRAZ-111 PO
[2019-04-26 19:05] VITALS: Ht 157.5 cm; Wt 72.7 kg
[2019-04-26] MEDS ORDERED: ONDANSETRON 4 MG INJ IV STA (20:12)
[2019-04-26] MEDS ORDERED: SOD CHLORIDE 0.9% 1,000 ML IV STA (20:12)
[2019-04-26] MEDS ORDERED: FAMOTIDINE 20 MG INJ IV STA (20:12)
[2019-04-26] MEDS ORDERED: ONDA4TAB14 PO (22:45)
[2019-04-26] MEDS ORDERED: ACET325T33 PO (22:45)
[2019-04-26] MEDS ORDERED: FAMO-96 PO (22:45)
[2019-04-26] MEDS ORDERED: MECLIZINE 12.5 MG TAB PO ONE (23:30)
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
[2019-04-27 00:30] VITALS: BP 122/62; PULSE 61; RESP 18
== END 2019-04-27 00:35 | disposition home or self-care (01) ==
LOC: FTE 19:01
DX: R11.10 Vomiting, unspecified (principal); R10.13 Epigastric pain; F17.210 Nicotine dependence, cigarettes, uncomplicated; R42 Dizziness and giddiness; Z86.73 Personal history of transient ischemic attack (TIA), and cerebral infarction without residual deficits
CPT/HCPCS: 70450; 76705; 80053; 81003; 83690; 85025; 96374; 96375; J2405; J7030; Z7502; Z7610